=== PATIENT | female | born 1995 | race Caucasian/White ===

== ENCOUNTER 2021-12-14 08:05 | Inpatient (IN) ==
[2021-12-14] MEDS ORDERED: OXYTOCIN 30 UNITS/500 ML BAG IV PRN ×3 (08:18→22:02)
[2021-12-14 09:11] LABS: Hematocrit (blood only) 31.4 % (37-47); Hemoglobin 9.1 g/dL (12.0-16.0); Mean Corpuscular Hemoglobin 20.8 pg (25-34); Mean Corpuscular Volume 71.7 fL (80-100); Mean Platelet Volume 11.1 fL (7.4-10.4); Platelet Count 335 K/uL (130-400); RDW Coefficient of Variation 17.6 % (11.5-14.5); RDW Standard Deviation 46.4 fL (36.4-46.3); Red Blood Count 4.38 M/uL (4.2-5.4); White Blood Count 12.16 K/uL (4.8-10.8)
[2021-12-14] MEDS: LACTATED RINGER'S 1,000 ML IV PRN ×3 (09:31→19:02)
--- NOTE | 2021-12-14 09:48 | Medical Student H&P ---
Date of Service December 14, 2021 Assessment & Plan (1) Encounter for induction of labor: Plan: Gail is a 26 y/o presenting for induction of labor. Normal physical exam with stable vitals. -Initiation induction with pitocin. -Cont. to evaluate cervical changes. -Plan for Epidural. -Cont. heart monitoring (2) Supervision of normal intrauterine in multigravida: (3) Hx of preeclampsia, prior , currently : Plan: Admission and Anticipated Discharge Date Admission Date: December 14, 2021 History of Present Illness Chief Complaint: Induction of labor Primary Care Provider: Cristal Ramirez PA-C Gail is a 26 y/o with intrauterine at 39w 4d who presents to labor and delivery for induction of labor. She reports active movement and last contraction was felt last night. No leakage of fluid or vaginal bleeding reported. and Delivery Plans complex choroid plexus cyst in the right side of brain *found @ scan on 12/03/21 from outside facility *PP follow up Prior complicated by preeclampsia * rec baby asa * baseline labs and 24hr urine--wnl Allergies Allergy/AdvReac Type Severity Reaction Status Date / Time No Known Allergies Allergy Verified 12/13/21 11:27 Home Medications Medication Instructions Recorded Confirmed Type prenat.vits,onel,qrp-[id number] 1 tab PO DAILY 06/02/21 12/14/21 History aspirin 81 mg tablet,delayed 81 mg PO DAILY 07/05/21 12/14/21 History release (Adult Low Dose Aspirin) breast pump #1 ea 11/15/21 12/13/21 Rx Patient History Medical History No known health problems Surgical History (Updated 11/22/21 @ 10:02 by nAdria Delarosa RN) No history of previous surgery Family History Father Hypertension Grandfather (Maternal) Myocardial infarction Social History (Updated 11/22/21 @ 10:05 by Andria Delarosa, KIA) Smoking Status: Former smoker Smoking End Date: 2018; Second Hand Exposure: No; Hx Alcohol Use: No Hx Substance Use: No Preferred Language: Latvian Communication Ability: Effective Visual Impairment: No Limitations Hearing Ability: Normal Eyeletter Required: No Beliefs That Will Affect Care: None marital status: marital status details: [place] (25) [phone] Current Living Situation: Spouse Current Living Situation Comment: lives wtih spouse and daughter, 4 dogs. current occupational status: unemployed Other Information That Helps Us Care for You: No Feels Safe at Home: Yes Safety Concerns: Feels Safe At This Time Seatbelt Use: always Do you think of yourself as: straight/heterosexual Gender Identity: Female Assistive Devices: None OB History History : 2 Full term: 1 Premature: 0 Total Number of Induced Abortions: 0 Total Number of Spontaneous Abortions: 0 Ectopics: 0 Multiple births: 0 Number of Living Children: 1 Past Pregnancies Del. Date GA wks Lbr Lgth wt Sex Type del Anes Place Del Prov ? 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 Details: last pap 05/05/21 with [facility] records on file Review of Systems no dyspnea no chest pain no abdominal pain no dysuria Physical Exam Physical Exam: Pleasant female, in NAD, sitting up in bed Constitutional: WD/WN, vitals as above Respiratory: normal respiratory effort, lungs clear to auscultation Cardiovascular: RRR, no murmur, no edema Results & Data ([facility]) Vital Signs (Past 12 Hours) Vital Signs Temp Pulse Resp BP 12/14/21 09:35 89 114/66 12/14/21 08:20 36.6 C 103 H 20 125/81 12/14/21 08:08 36.6 C 103 H 20 125/81
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
[2021-12-14] MEDS ORDERED: SODIUM CHLORIDE 0.9% INJ 10 ML VIAL ONE (12:44)
[2021-12-14] MEDS ORDERED: ePHEDrine sulfate 50 MG/ML AMP ONE (12:44)
[2021-12-14] MEDS ORDERED: fentaNYL citrate 100 MCG/2 ML VIAL ONE (12:45)
[2021-12-14] MEDS ORDERED: BUPIVACAINE 0.25% 30 ML VIAL ONE ×2 (12:45→19:09)
[2021-12-14] MEDS: fentaNYL 2MCG/ML ROPIVACAINE 1.25MG/ML 100 ML BAG EPI ONE ×2 (13:19→13:23)
[2021-12-14] MEDS ORDERED: PROMETHAZINE HCL 6.25 MG in SODIUM CHLORIDE 0.9% 50 ML IV PRN (13:26)
[2021-12-14] MEDS ORDERED: fentaNYL 2MCG/ML ROPIVACAINE 1.25MG/ML 100 ML BAG EPI PRN (13:26)
[2021-12-14] MEDS ORDERED: NALOXONE HCL 0.4 MG/1 ML VIAL/CARP IV PRN (13:26)
[2021-12-14] MEDS ORDERED: NALOXONE HCL 1 MG in SODIUM CHLORIDE 0.9% 1000ML 1,000 ML IV PRN (13:26)
[2021-12-14] MEDS ORDERED: diphenhydrAMINE 50 MG/ML VIAL IV PRN (13:26)
[2021-12-14] MEDS ORDERED: ONDANSETRON INJ 2 MG/ML 2 ML VIAL IV PRN (13:26)
[2021-12-14] MEDS ORDERED: ePHEDrine sulfate 50 MG/ML AMP IV PRN (13:26)
[2021-12-14] MEDS ORDERED: NALBUPHINE HCL INJ 10 MG/ML AMP IV PRN (13:26)
--- NOTE | 2021-12-14 13:26 | Anesthesiology Consultation ---
Date of Service December 14, 2021 Assessment & Plan Chart Review Chart Review: Patient NOT seen in Pre Admission Testing and Acceptable Risk for Labor Epidural Consults Requested none ASA ASA2 Proposed Anesthesia Anesthesia Type: Labor Epidural Risk / Benefits Reviewed With: PT / POA / Parent / Guardian, Accepts Plan and Informed Consent Obtained History Height/Weight Height: 5 ft 5 in Weight: 84.368 kg Allergies Allergy/AdvReac Type Severity Reaction Status Date / Time No Known Allergies Allergy Verified 12/13/21 11:27 Medications Home Medications Medication Instructions Recorded Confirmed Last Taken prenat.vits,onel,mzo-pevm-huckc 1 tab PO DAILY 06/02/21 12/14/21 12/14/21 06:30 aspirin 81 mg tablet,delayed 81 mg PO DAILY 07/05/21 12/14/21 12/13/21 17:00 release (Adult Low Dose Aspirin) breast pump #1 ea 11/15/21 12/13/21 Unknown Active Medications Generic Name Dose Route Start Last Admin Trade Name Freq PRN Reason Stop Dose Admin Lactated Ringer's 1,000 mls @ 125 mls/hr 12/14/21 08:18 12/14/21 13:12 Lr IV 12/16/21 08:17 999 mls/hr .Q8H PRN Administration L&D Protocol Protocol Oxytocin 30 units in 500 mls @ 12 mls/hr 12/14/21 08:43 12/14/21 12:30 Pitocin IV 12/16/21 08:42 0.72 units/hr .Q24H PRN 12 mls/hr Labor Induction/Augmentation Titration Protocol 0.72 UNITS/HR Past Medical History Medical History No known health problems Exercise / Class Metabolic Activity II 4-5 Yardwork/Stairs/Walk up hill Past Family History Family History Father Hypertension Grandfather (Maternal) Myocardial infarction Past Surgical History Surgical History (Updated 11/22/21 @ 10:02 by Andria Delarosa RN) No history of previous surgery Past Anesthesia History No Hx of Anesthesia Complications and No Family Hx of Anesthesia Complications History of PONV No Hx of PONV and No Hx of Motion Sickness Social History Smoking Status: Former smoker tobacco type: cigarettes Smoking End Date: 2018 Hx Alcohol Use: No Hx Substance Use: No substance use type: does not use Physical Exam Vital Signs Last Vital Signs Temp 36.6 C 12/14/21 08:20 Pulse 84 12/14/21 13:23 Resp 20 12/14/21 08:20 BP 119/71 12/14/21 13:25 Pulse Ox 99 12/14/21 13:23 ENMT Mouth: no dentition abnormality Thyromental Distance: > or= 3.5 Finger Breadths Mallampati Class: II Neck normal visual inspection Respiratory normal respiratory effort Auscultation: lungs clear to auscultation bilaterally Cardiovascular Rate/Rhythm: regular rate and regular rhythm Psychiatric Orientation: alert Testing Laboratory Results 12/14/21 09:04 Blood Type AB Positive 12/14/21 09:04 Antibody Screen NEGATIVE 12/14/21 09:04
--- NOTE | 2021-12-14 14:07 | Labor Progress Brief Note ---
Date of Service December 14, 2021 Subjective Comfortable w/ epidural Assessment & Plan (1) Encounter for induction of labor: Plan: 26 y/o at 39 4/7 wga presents for elective IOL VSS Fetus cat 1 Labor - pit at 12, now s/p arom. Continue augmentation GBS neg epidural in place Admission and Anticipated Discharge Date Admission Date: December 14, 2021 Physical Exam Genitourinary: Manual OB Exam: + cervical dilation (4-5), + cervical effacement 70%, + station -2 and + amniotic fluid (AROM clear) OB Exam Monitor Tracing: + external FHT monitor used, + external uterine monitor used (q3-5) and + category I (130/mod/+accel/-decel) Results & Data ([facility]) Vital Signs (Past 12 Hours) Vital Signs Temp Pulse Resp BP Pulse Ox 12/14/21 13:58 76 100 12/14/21 13:57 76 133/85 12/14/21 13:53 119 H 100 12/14/21 13:48 108 H 100 12/14/21 13:43 103 H 99 12/14/21 13:41 90 125/71 12/14/21 13:38 82 99 12/14/21 13:36 83 136/77 12/14/21 13:33 76 119/74 99 12/14/21 13:28 104 H 99 12/14/21 13:25 81 119/71 12/14/21 13:23 84 125/72 99 12/14/21 13:21 86 120/74 12/14/21 13:19 86 132/86 12/14/21 13:18 87 99 12/14/21 13:17 80 131/82 12/14/21 13:13 84 99 12/14/21 13:08 87 100 12/14/21 13:03 83 100 12/14/21 12:58 88 123/73 100 12/14/21 12:30 93 H 132/85 12/14/21 11:29 88 124/76 12/14/21 10:37 84 117/77 12/14/21 09:35 89 114/66 12/14/21 08:20 97.9 F 103 H 20 125/81 12/14/21 08:08 97.9 F 103 H 20 125/81 Coding Level of Care Code None Diagnoses Encounter for induction of labor Z34.90
--- NOTE | 2021-12-14 16:14 | Labor Progress Brief Note ---
Date of Service December 14, 2021 Subjective Comfortable w/ epidural Assessment & Plan (1) Encounter for induction of labor: Plan: 26 y/o at 39 4/7 wga presents for elective IOL VSS Fetus cat 2 but good variability Labor - pit at 14 - Continue augmentation, try maternal repositioning GBS neg epidural in place Admission and Anticipated Discharge Date Admission Date: December 14, 2021 Physical Exam Genitourinary: Manual OB Exam: + cervical dilation 5 cm, + cervical effacement 70% and + station -2 OB Exam Monitor Tracing: + external FHT monitor used, + external uterine monitor used (q3-5) and + category I (130/mod/+accel/intermit variables ) Results & Data ([facility]) Vital Signs (Past 12 Hours) Vital Signs Temp Pulse Resp BP Pulse Ox 12/14/21 16:08 87 98 12/14/21 16:03 78 98 12/14/21 15:58 80 98 12/14/21 15:56 93 H 107/64 12/14/21 15:53 106 H 98 12/14/21 15:48 80 98 12/14/21 15:43 79 98 12/14/21 15:42 75 119/70 12/14/21 15:38 73 97 12/14/21 15:33 83 97 12/14/21 15:28 80 98 12/14/21 15:26 81 122/80 12/14/21 15:23 89 99 12/14/21 15:18 78 97 12/14/21 15:13 77 99 12/14/21 15:11 77 118/74 12/14/21 15:08 86 98 12/14/21 15:03 73 98 12/14/21 14:58 81 98 12/14/21 14:57 79 124/72 12/14/21 14:53 84 98 12/14/21 14:48 78 99 12/14/21 14:43 76 98 12/14/21 14:41 76 123/73 12/14/21 14:38 85 98 12/14/21 14:33 81 98 12/14/21 14:28 75 98 12/14/21 14:26 78 129/81 12/14/21 14:23 85 99 12/14/21 14:18 87 99 12/14/21 14:13 79 122/78 99 12/14/21 14:08 81 97 12/14/21 14:03 84 97 12/14/21 13:58 76 100 12/14/21 13:57 76 133/85 12/14/21 13:53 119 H 100 12/14/21 13:48 108 H 100 12/14/21 13:43 103 H 99 12/14/21 13:41 90 125/71 12/14/21 13:38 82 99 12/14/21 13:36 83 136/77 12/14/21 13:33 76 119/74 99 12/14/21 13:28 104 H 99 12/14/21 13:25 81 119/71 12/14/21 13:23 84 125/72 99 12/14/21 13:21 86 120/74 12/14/21 13:19 86 132/86 12/14/21 13:18 87 99 12/14/21 13:17 80 131/82 12/14/21 13:13 84 99 12/14/21 13:08 87 100 12/14/21 13:03 83 100 12/14/21 12:58 88 123/73 100 12/14/21 12:30 93 H 132/85 12/14/21 11:29 88 124/76 12/14/21 10:37 84 117/77 12/14/21 09:35 89 114/66 12/14/21 08:20 97.9 F 103 H 20 125/81 12/14/21 08:08 97.9 F 103 H 20 125/81 Coding Level of Care Code None Diagnoses Encounter for induction of labor Z34.90
--- NOTE | 2021-12-14 19:42 | Communication Note ---
Date of Service: December 14, 2021 called for increasing pain. patient is fully dilated, having intense pressure across the low abdomen. a few pushes were unsuccessful at moving the baby downward. excellent epidural level to temperature to at least T6 bilaterally. I did manage expectations that this overwhelming pressure is normal and expected in the 2nd stage. I have dosed her with 6cc of 0.25% marcaine to some improvement. Continue current pcea settings. Encourage use of bolus button PRN.
--- NOTE | 2021-12-14 20:46 | Delivery Summary ---
Vaginal Delivery Summary Date of Service December 14, 2021 Vaginal Delivery Summary and 2nd Degree LAC PREOPERATIVE DIAGNOSIS: 1. Single intrauterine at 39 4/7 wga 2. Elective IOL 3. History of pre-eclampsia 4. Right complex choroid plexus cyst POSTOPERATIVE DIAGNOSIS: 1. Single intrauterine at 39 4/7 wga 2. Elective IOL 3. History of pre-eclampsia 4. Right complex choroid plexus cyst 5. Delivered PROCEDURE: 1. Normal spontaneous vaginal delivery. SURGEON: Kim Velazquez MD ANESTHESIA: Epidural. ESTIMATED BLOOD LOSS: 300 mL FLUIDS: Continuous LR. URINE OUTPUT: None. COMPLICATIONS: None. CONDITION: Stable. INDICATIONS: 26 y/o at 39 4/7 wga presented for elective IOL. She was found to have a choroid plexus cyst at an outside sonography suite about 2 weeks ago and planned for f/u for this due to GA. Induction was started with oxytocin. She underwent artificial rupture of membranes and received an epidural for pain control. She progressed to complete and desired to push. FINDINGS: A viable female , weight pending with Apgars of 8 and 9 at 1 and 5 minutes respectively. SPECIMEN: Cord blood OPERATIVE REPORT: The patient progressed to 10 cm, 100% effaced and +2 station, pushed over intact perineum with anesthesia to deliver a viable female infant, weight and Apgars as above. Head of delivered in direct OP position. No nuchal cord was present. Body and shoulders were delivered without difficulty. was delivered to maternal abdomen and nursing staff. Delayed cord clamping was performed for 60 seconds. Cord was clamped and cut. Cord blood was obtained. Placenta delivered spontaneously intact with 3-vessel cord. IV oxytocin and fundal massage were given for excellent hemostasis. Vagina, cervix, perineum, and placenta were inspected. A second degree laceration was noted and repaired using 3-0 Vicryl, there was excellent hemostasis. Sponge and needle counts correct x2. No sponges were left behind. Mother and stable in immediate period. [facility] Vaginal Delivery Charge Vaginal Delivery Codes: 53650 global code for the antepartum, delivery, and post- Delivery Type Details: and 2nd Degree LAC
--- NOTE | 2021-12-14 20:55 | Anesthesia Procedure Note ---
Date of Service December 14, 2021 Anesthesia Post Epidural Note Vital Signs Vital Signs: Temp Pulse Resp BP Pulse Ox 36.9 C 98 H 20 121/63 99 12/14/21 17:03 12/14/21 20:52 12/14/21 18:03 12/14/21 20:52 12/14/21 20:18 Pain Intensity Bilateral Abdomen: Pain Intensity: 0 Notes Mental Status: alert / awake / arousable Nausea / Vomiting: adequately controlled Pain: adequately controlled Airway Patency, RR, SpO2: stable & adequate BP & HR: stable & adequate Hydration State: stable & adequate Neuraxial Anesthesia: was administered and sensory block is resolving Anesthetic Complications: no major complications apparent and Pt Satisfied with anesthetic care Epidural: Removed without complications and With tip intact
[2021-12-14] MEDS ORDERED: HYDROCORTISONE ACETATE 25 MG SUPP PR PRN (22:02)
[2021-12-14] MEDS ORDERED: bisacodyL 10 MG SUPP PR PRN (22:02)
[2021-12-14] MEDS ORDERED: DIPHTHERIA/TETANUS/PERTUSSIS 0.5 ML SYR/VIAL IM ONE (22:02)
[2021-12-14] MEDS ORDERED: BENZOCAINE 20% AER SPR 82.5 GM CAN EXT PRN (22:02)
[2021-12-14] MEDS: ACETAMINOPHEN 325 MG TAB PO PRN (22:12)
[2021-12-15 05:56] LABS: Hemoglobin 8.4 g/dL (12.0-16.0); Mean Corpuscular Hemoglobin 20.6 pg (25-34); Mean Corpuscular Volume 71.3 fL (80-100); Mean Platelet Volume 10.6 fL (7.4-10.4); Platelet Count 286 K/uL (130-400); RDW Coefficient of Variation 17.4 % (11.5-14.5); RDW Standard Deviation 45.1 fL (36.4-46.3); Red Blood Count 4.07 M/uL (4.2-5.4); White Blood Count 19.31 K/uL (4.8-10.8)
[2021-12-15] MEDS: ACETAMINOPHEN 325 MG TAB PO PRN (06:13)
--- NOTE | 2021-12-15 07:07 | Hospitalist Progress Note ---
Date of Service December 15, 2021 Assessment & Plan (1) Encounter for care and examination after delivery: Plan: 26yo PPD 1 s/p at 39 weeks 4 days complicated 2nd degree laceration. -Continue routine care -Vitals reviewed- HDS, afebrile -Rubella immune, GBS neg -Encourage ambulation, regular diet -Pain control with ibuprofen, acetaminophen PRN -Encourage -h/o anemia during not on iron pills last 2 months; Hgb 8.4, stable, supplement iron -f/u in 6 weeks with OB after discharge (2) Supervision of normal intrauterine in multigravida: (3) Hx of preeclampsia, prior , currently : (4) Hypertension affecting , delivered, current hospitalization: Admission and Anticipated Discharge Date Admission Date: December 14, 2021 Supervising Physician Co-Signing Physician Notes Resident Physician Supervision Note: I interviewed and examined the patient. Discussed with Dr. Russo and agree with findings and plan as documented in the note. Any exceptions or clarifications are listed here: PP1 s/p for eIOL. VSS, exam benign and wnl. *pt did NOT have salcedo, she has been voiding appropriately and was not on mag*. Iron ordered for anemia, continue routine pp care. Plan for d/c tomorrow as pt lives far away Documented By: Kim Velazquez MD Subjective Ambulation: yes Voiding: not yet, salcedo removed 2 hours ago s/p mag drip Passing Gas: no BM: no Diet Tolerance: regular w/o N/V Lochia: small Feeding Type: breast and bottle Current Pain Level(1-10): 4 Review of Systems Review of Systems: Denies fevers/chills. Denies dyspnea, cough. Denies chest pain. Denies breast pain or discharge. Denies dysuria. Mild headache early this morning. +low back pain. Physical Exam Physical Exam: General: Alert, oriented, no acute distress Cardiac: Regular rate and rhythm. No murmurs appreciated. Respiratory: Clear to auscultation b/l with good air flow entry, symmetric chest rise and fall. No wheezes or crackles. No increased work of breathing or accessory muscle use. Abdomen: Soft, appropriate mild generalized tenderness s/p delivery, nondistended. Fundus firm and palpable at 1 cm above umbilicus. No guarding or rebound. Skin: No rashes or lesions Extremities: Warm, dry, well-perfused. No lower extremity edema, erythema or swelling. No calf tenderness. Results & Data Results & Data ([facility]) Vital Signs (Past 12 Hours) Vital Signs Temp Pulse Pulse Resp BP BP Pulse Ox 12/15/21 03:00 36.8 C 77 20 100/62 96 12/14/21 23:10 36.8 C 83 20 116/70 97 12/14/21 22:00 36.9 C 74 16 97 12/14/21 21:51 37.3 C 24 12/14/21 21:50 93 H 123/66 12/14/21 21:37 86 126/58 L 12/14/21 21:22 96 H 127/81 12/14/21 21:07 88 122/74 12/14/21 20:52 98 H 121/63 12/14/21 20:37 103 H 138/70 12/14/21 20:22 109 H 139/67 12/14/21 20:18 103 H 99 12/14/21 20:13 107 H 100 12/14/21 20:10 100 H 90 12/14/21 20:08 105 H 135/70 100 12/14/21 20:03 103 H 98 12/14/21 19:58 124 H 98 12/14/21 19:54 99 H 88 L 12/14/21 19:53 101 H 133/81 100 12/14/21 19:48 96 H 100 12/14/21 19:43 121 H 100 12/14/21 19:38 104 H 100 12/14/21 19:37 110 H 130/86 92 12/14/21 19:33 137 H 100 12/14/21 19:31 93 H 92 12/14/21 19:28 107 H 100 12/14/21 19:24 105 H 134/84 12/14/21 19:23 105 H 100 12/14/21 19:21 98 H 133/82 12/14/21 19:18 95 H 132/78 95 12/14/21 19:15 94 H 132/79 12/14/21 19:13 108 H 100 12/14/21 19:12 93 H 130/77 12/14/21 19:08 89 100 12/14/21 19:03 102 H 83 L 12/14/21 18:58 89 100 12/14/21 18:57 100 H 127/78 Resident Activity Tracking Resident Involvement: Resident Care Provided Care Provided: OB Delivery
[2021-12-15] MEDS: DOCUSATE SODIUM 100 MG CAP PO SCH ×2 (07:52→19:17)
[2021-12-15] MEDS: PRENATAL VITAMIN 1 TAB PO SCH (07:52)
[2021-12-15] MEDS: IBUPROFEN 600 MG TAB PO PRN ×3 (07:52→19:17)
[2021-12-15] MEDS: FERROUS SULFATE 325 MG TAB PO SCH (07:52)
[2021-12-15] MEDS ORDERED: bisacodyL 5 MG TABEC PO SCH (20:00)
[2021-12-16] MEDS: IBUPROFEN 600 MG TAB PO PRN (06:15)
--- NOTE | 2021-12-16 07:16 | Hospitalist Progress Note ---
Date of Service December 16, 2021 Assessment & Plan (1) Encounter for care and examination after delivery: Plan: 26yo PPD 1 s/p at 39 weeks 4 days complicated 2nd degree laceration. -Continue routine care -Vitals reviewed- HDS, afebrile -Rubella immune, GBS neg -Encourage ambulation, regular diet -Pain control with ibuprofen, acetaminophen PRN -Encourage -h/o anemia during , stopped iron pills last 2 months of due to GI symptoms; Hgb 8.4 (2/), stable, cont. iron supplementation for next 6 weeks; consider niferex if GI symptoms on current iron pills -f/u in 6 weeks with OB after discharge; recheck Hgb at this time (2) Supervision of normal intrauterine in multigravida: Admission and Anticipated Discharge Date Admission Date: December 14, 2021 Supervising Physician Co-Signing Physician Notes Resident Physician Supervision Note: I was present with Dr. Michael Russo during the history and exam. I discussed the case with the resident and agree with the findings and plan as documented in the note. Any exceptions or clarifications are listed here: [None] Documented By: Rossy Haque MD, FACOG Subjective Ambulation: yes Voiding: yes Passing Gas: yes BM: yes Diet Tolerance: regular w/o N/V Lochia: small Feeding Type: breast and bottle Current Pain Level(1-10): 4 Review of Systems Review of Systems: Denies fevers/chills. Denies dyspnea, cough. Denies chest pain. Denies breast pain or discharge. Denies dysuria. Denies headache. Physical Exam Physical Exam: General: Alert, oriented, no acute distress Cardiac: Regular rate and rhythm. No murmurs appreciated. Respiratory: Clear to auscultation b/l with good air flow entry, symmetric chest rise and fall. No wheezes or crackles. No increased work of breathing or accessory muscle use. Abdomen: Soft, appropriate mild generalized tenderness s/p delivery, nondistended. Fundus firm and palpable 1cm below umbilicus. No guarding or rebound. Skin: No rashes or lesions Extremities: Warm, dry, well-perfused. No lower extremity edema, erythema or swelling. No calf tenderness. Results & Data Results & Data ([facility]) Vital Signs (Past 12 Hours) Vital Signs Temp Pulse Resp BP Pulse Ox 12/15/21 23:28 36.4 C L 67 16 106/71 97 Resident Activity Tracking Resident Involvement: Resident Care Provided Care Provided: OB Delivery
[2021-12-16] MEDS: PRENATAL VITAMIN 1 TAB PO SCH (08:46)
[2021-12-16] MEDS: DOCUSATE SODIUM 100 MG CAP PO SCH (08:46)
[2021-12-16] MEDS: FERROUS SULFATE 325 MG TAB PO SCH (08:46)
== END 2021-12-16 12:09 | disposition home or self-care (01) | DRG 807 ==
LOC: 4S1 08:05 → 4S2 22:05
DX: Z37.0 Single live birth; Z87.891 Personal history of nicotine dependence; Z87.59 Personal history of other complications of pregnancy, childbirth and the puerperium; O70.1 Second degree perineal laceration during delivery; O35.0XX0 Maternal care for (suspected) central nervous system malformation in fetus, not applicable or unspecified; Z3A.39 39 weeks gestation of pregnancy

== ENCOUNTER 2021-12-19 10:38 | Inpatient (IN) ==
[2021-12-19] MEDS ORDERED: SODIUM CHLORIDE 0.9% 1000ML 1,000 ML IV STA (11:07)
[2021-12-19] MEDS ORDERED: MoRPHine SULFATE 4 MG/ML 1 ML CARP\\VIAL IV STA (11:07)
[2021-12-19] MEDS ORDERED: ONDANSETRON INJ 2 MG/ML 2 ML VIAL IV STA (11:07)
[2021-12-19 11:17] LABS: Basophils # (auto) 0.02 K/uL (0-0.2); Basophils % (auto) 0.1 %; Eosinophils # (auto) 0.12 K/uL (0-0.5); Eosinophils % (auto) 0.9 %; Hematocrit (blood only) 34.3 % (37-47); Immature Granulocytes % (auto) 0.7 %; Lymphocytes # (auto) 2.58 K/uL (1.2-3.4); Lymphocytes % (auto) 18.4 %; Mean Corpuscular Hemoglobin 21.3 pg (25-34); Mean Corpuscular Hgb Conc 29.2 g/dL (32-36); Mean Platelet Volume 10.1 fL (7.4-10.4); Monocytes # (auto) 1.06 K/uL (0.11-0.59); Monocytes % (auto) 7.5 %; Neutrophils # (auto) 10.16 K/uL (1.4-6.5); Neutrophils % (auto) 72.4 %; Platelet Count 364 K/uL (130-400); RDW Coefficient of Variation 18.4 % (11.5-14.5); White Blood Count 14.04 K/uL (4.8-10.8)
--- NOTE | 2021-12-19 11:17 | Emergency Department Note ---
Impression & Plan Adrenal hemorrhage, DVT (deep venous thrombosis), Acute flank pain ED Provider Note NAME: JOSÉ GALE AGE: 26 SEX: F : 1995 ARRIVES VIA: Walk-In INFORMANT: Patient, ED PROVIDER(S): Danilo Moser DO CHIEF COMPLAINT: Flank pain HPI: The patient is a 26-year-old female who presented to the emergency department for evaluation of flank pain. The patient has a history of kidney stones but states that this feels different than her usual kidney stone pain. The patient came via triage. She is 1 week normal spontaneous vaginal delivery. She states that this went well. Her lochia has been slowing down. She denies having any dysuria or frequency. She states the pain is constant and very sharp. She denies having any chest pain or difficulty breathing. She is noticed no fevers. She is been taking [id number] medication with only minimal relief. She called her LEASING PROFESSIONAL physician and was referred to the emergency department for further evaluation. The patient has had nausea. She denies have any lower extremity swelling or pain. She has had no vaginal discharge. ROS: See above HPI for pertinent positives & negatives. A total of 10 systems reviewed and were otherwise negative. PAST MEDICAL HISTORY: See Below PAST SURGICAL HISTORY: See Below FAMILY HISTORY: See Below SOCIAL HISTORY: See Below HOME MEDICATIONS: See Below ALLERGIES: See Below VITALS: See Below PHYSICAL EXAMINATION: GENERAL: The patient is awake and alert. The patient is very anxious appearing and appears to be uncomfortable EYES: The conjunctivae are clear. The pupils are round and reactive. EARS, NOSE, MOUTH AND THROAT: The nose is without any evidence of any deformity. NECK: The neck is nontender and supple. RESPIRATORY: Normal respiratory effort is noted there is no evidence of wheezing rhonchi or rales CARDIOVASCULAR: Regular rate and rhythm noted there no murmurs rubs or gallops normal S1 normal S2. GASTROINTESTINAL: The abdomen is soft and mildly distended. There is no specific tenderness guarding rigidity. BACK: There was significant left CVA tenderness to percussion. There is no midline tenderness. Range of motion appears intact MUSCULOSKELETAL/EXTREMITIES: There is no evidence of gross deformity full range of motion is noted in the hips and shoulders. SKIN: There is no obvious evidence of any rash. There are no petechiae, pallor or cyanosis noted. NEUROLOGIC: Patient is awake alert and oriented x3 strength is symmetric patellar reflexes are 2+ bilaterally MEDICAL DECISION MAKING: The patient is a 26-year-old female who presented to emergency department for an evaluation of flank pain. The patient is 5 days status post vaginal delivery. The patient presented for acute left flank pain. She has a history of kidney stones. Initially a work-up was obtained to ensure there was no complications because of her recent vaginal delivery as well as to evaluate for kidney stone. The patient was not found to have any abnormality on initial work-up. For this reason CT of the abdomen and pelvis was obtained. The report did appear to be consistent with adrenal hemorrhage with a possible left adrenal vein thrombosis. They recommended a repeat scan with contrast which was obtained. The scan showed roughly the same appearance. I discussed patient's laboratory and radiographic studies with her. I discussed her case with the covering LE[employer] PROFESSIONAL physician as well as hematology. [facility] also [facility] have agreed to evaluate the patient in the emergency department for further management and disposition. The patient was treated with IV fluids and IV pain medication. Triage Nursing notes reviewed. Prior medical records reviewed Vital Signs: reviewed and remarkable for no significant abnormalities Differential diagnosis: Renal colic, UTI, appendicitis, diverticulitis, mesenteric ischemia, aortic pathology, infections, inflammatory bowel disease, PUD, biliary pathology, as well as other pathologies. ER treatment provided: See below Diagnostics interpreted by me: ECG: none Cardiac Monitoring: An order was placed for continuous cardiac monitoring. The monitor shows a rate of 94 bpm with sinus rhythm. Laboratory studies: As stated above and show below. Imaging studies: See below Consultation(s): I discussed this case with Dr Parikh. I discussed this case with Dr Licona. I discusses this case with Dr Au. I discussed this case with Dr. Bauer who [facility] They have agreed to evaluate the patient in the emergency department for further management and disposition. Past Med/Surg History Medical History No known health problems Surgical History No history of previous surgery Family History Father Hypertension Grandfather (Maternal) Myocardial infarction Social History Smoking Status: Never smoker Second Hand Exposure: No; Hx Alcohol Use: No Hx Substance Use: No Preferred Language: Czech Communication Ability: Effective Visual Impairment: No Limitations Hearing Ability: Normal Auto Phone Installer Required: No Beliefs That Will Affect Care: None marital status: marital status details: Kent (25) [phone] Current Living Situation: Spouse Current Living Situation Comment: lives wtih spouse and daughter, 4 dogs. current occupational status: unemployed Feels Safe at Home: Yes Seatbelt Use: always Do you think of yourself as: straight/heterosexual Gender Identity: Female Assistive Devices: None Allergies Allergies Allergy/AdvReac Type Severity Reaction Status Date / Time No Known Allergies Allergy Verified 12/19/21 11:20 Home Meds Home Medications Medication Instructions Recorded Confirmed prenat.vits,onel,sra-nyjm-[id number] 1 tab PO DAILY 06/02/21 12/19/21 Previous Rx's Medication Instructions Recorded breast pump #1 ea 11/15/21 ferrous sulfate 325 mg (65 mg 325 mg PO DAILY@08 #60 tab 12/16/21 iron) tablet,delayed release Results & Data (ED) Vital Signs Vital Signs - 24 hr 12/19/21 10:45 12/19/21 11:29 12/19/21 15:29 Temperature 36.3 C L Temperature Source Temporal Artery Scan Pulse Rate 97 H 85 Pulse Rate [Apical] 85 102 H Pulse Rhythm Regular Pulse Rhythm [Apical] Regular Regular Pulse Strength [Apical] Respiratory Rate 18 16 16 Respiratory Effort / Characteristics Non-Labored Respiratory Depth Normal Normal Respiratory Pattern Blood Pressure 127/88 Blood Pressure [Left Arm] Blood Pressure Mean 101 Blood Pressure Mean [Left Arm] Blood Pressure Position [Left Arm] Pulse Oximetry 97 98 96 Oxygen Delivery Method Room Air Room Air Sepsis Recent Fever Within 48 Hours No Sepsis New/Unexplained Change in Mental Status No Sepsis Action Taken by Nursing No Action Required 12/19/21 16:17 Temperature Temperature Source Pulse Rate Pulse Rate [Apical] 94 H Pulse Rhythm Pulse Rhythm [Apical] Regular Pulse Strength [Apical] Normal Respiratory Rate 18 Respiratory Effort / Characteristics Non-Labored Spontaneous Respiratory Depth Normal Respiratory Pattern Regular Blood Pressure Blood Pressure [Left Arm] 136/92 Blood Pressure Mean Blood Pressure Mean [Left Arm] 106 Blood Pressure Position [Left Arm] Semi-fowlers Pulse Oximetry 96 Oxygen Delivery Method Room Air Sepsis Recent Fever Within 48 Hours Sepsis New/Unexplained Change in Mental Status Sepsis Action Taken by [facility] Medications Current Medication List: was personally reviewed by me Laboratory Data Attestation: I reviewed the patient's lab results. Result diagrams: 12/19/21 15:44 12/19/21 10:59 Lab Results 12/19/21 12/19/21 12/19/21 Range/Units 10:59 10:59 10:59 WBC 14.04 H (4.8-10.8) K/uL RBC 4.70 (4.2-5.4) M/uL Hgb 10.0 L (12.0-16.0) g/dL Hct 34.3 L (37-47) % MCV 73.0 L (80-100) fL MCH 21.3 L (25-34) pg MCHC 29.2 L (32-36) g/dL RDW Std Deviation 47.0 H (36.4-46.3) fL RDW Coeff of Iram 18.4 H (11.5-14.5) % Plt Count 364 (130-400) K/uL MPV 10.1 (7.4-10.4) fL Immature Gran % (Auto) 0.7 % Neut % (Auto) 72.4 % Lymph % (Auto) 18.4 % [place] % (Auto) 7.5 % Eos % (Auto) 0.9 % Baso % (Auto) 0.1 % Neut # (Auto) 10.16 H (1.4-6.5) K/uL Lymph # (Auto) 2.58 (1.2-3.4) K/uL [place] # (Auto) 1.06 H (0.11-0.59) K/uL Eos # (Auto) 0.12 (0-0.5) K/uL Baso # (Auto) 0.02 (0-0.2) K/uL Immature Gran # (Auto) 0.10 H (0.00-0.02) K/uL Microcytosis Present PT (9.0-12.0) Seconds INR (0.9-1.1) APTT (21.0-31.0) Seconds PTT Ratio Sodium 137 (136-145) mmol/L Potassium 3.6 (3.5-5.1) mmol/L Chloride 103 (98-107) mmol/L Carbon Dioxide 26 (21-32) mmol/L Anion Gap 8 (3-11) BUN 12 (6-23) mg/dl Creatinine 0.46 L (0.6-1.2) mg/dl Est Cr Clr Drug Dosing 191.6 ml/min Est GFR ( Amer) > 150.0 ml/min Est GFR (Non-Af Amer) 137.3 ml/min BUN/Creatinine Ratio 26.1 H (10-20) Glucose 83 (70-99(Fasting)) mg/dl Calcium 8.7 (8.5-10.1) mg/dl Total Bilirubin 0.2 (0.2-1.0) mg/dl AST 29 (13-39) U/L ALT 42 (7-52) U/L Alkaline Phosphatase 155 H (34-104) U/L Total Protein 7.1 (6.0-8.3) gm/dl Albumin 3.6 (3.4-5.0) gm/dl Globulin 3.5 (2.5-4.0) gm/dl Albumin/Globulin Ratio 1.0 (0.9-2) Lipase 25 (11-82) U/L HCG, Quant 271 mIU/ml Urine Color Urine Appearance (Clear) Urine pH (4.5-7.5) Ur Specific [place] (1.000-1.030) Urine Protein (Negative) Urine Glucose (UA) (Negative) Urine Ketones (Negative) Urine Blood (Negative) Urine Nitrite (Negative) Urine Bilirubin (Negative) Urine Urobilinogen (Negative) Ur Leukocyte Esterase (Negative) Urine WBC (Auto) (0-5) /hpf Urine RBC (Auto) (0-4) /hpf U Hyaline Cast (Auto) (0-5) /lpf U Epithel Cells (Auto) (0-5) /lpf Urine Bacteria (Auto) (Negative) SARS-CoV-2, RNA, NAAT (NEGATIVE) 12/19/21 12/19/21 12/19/21 Range/Units 10:59 15:28 15:44 WBC 14.17 H (4.8-10.8) K/uL RBC 4.38 (4.2-5.4) M/uL Hgb 9.1 L (12.0-16.0) g/dL Hct 32.0 L (37-47) % MCV 73.1 L (80-100) fL MCH 20.8 L (25-34) pg MCHC 28.4 L (32-36) g/dL RDW Std Deviation 47.0 H (36.4-46.3) fL RDW Coeff of Iram 18.2 H (11.5-14.5) % Plt Count 345 (130-400) K/uL MPV 10.1 (7.4-10.4) fL Immature Gran % (Auto) 0.5 % Neut % (Auto) 76.6 % Lymph % (Auto) 15.7 % [place] % (Auto) 6.7 % Eos % (Auto) 0.4 % Baso % (Auto) 0.1 % Neut # (Auto) 10.85 H (1.4-6.5) K/uL Lymph # (Auto) 2.22 (1.2-3.4) K/uL [place] # (Auto) 0.95 H (0.11-0.59) K/uL Eos # (Auto) 0.06 (0-0.5) K/uL Baso # (Auto) 0.02 (0-0.2) K/uL Immature Gran # (Auto) 0.07 H (0.00-0.02) K/uL Microcytosis Present PT 9.7 (9.0-12.0) Seconds INR 1.0 (0.9-1.1) APTT 25.1 (21.0-31.0) Seconds PTT Ratio 1.0 Sodium (136-145) mmol/L Potassium (3.5-5.1) mmol/L Chloride (98-107) mmol/L Carbon Dioxide (21-32) mmol/L Anion Gap (3-11) BUN (6-23) mg/dl Creatinine (0.6-1.2) mg/dl Est Cr Clr Drug Dosing ml/min Est GFR ( Amer) ml/min Est GFR (Non-Af Amer) ml/min BUN/Creatinine Ratio (10-20) Glucose (70-99(Fasting)) mg/dl Calcium (8.5-10.1) mg/dl Total Bilirubin (0.2-1.0) mg/dl AST (13-39) U/L ALT (7-52) U/L Alkaline Phosphatase (34-104) U/L Total Protein (6.0-8.3) gm/dl Albumin (3.4-5.0) gm/dl Globulin (2.5-4.0) gm/dl Albumin/Globulin Ratio (0.9-2) Lipase (11-82) U/L HCG, Quant mIU/ml Urine Color Urine Appearance (Clear) Urine pH (4.5-7.5) Ur Specific [place] (1.000-1.030) Urine Protein (Negative) Urine Glucose (UA) (Negative) Urine Ketones (Negative) Urine Blood (Negative) Urine Nitrite (Negative) Urine Bilirubin (Negative) Urine Urobilinogen (Negative) Ur Leukocyte Esterase (Negative) Urine WBC (Auto) (0-5) /hpf Urine RBC (Auto) (0-4) /hpf U Hyaline Cast (Auto) (0-5) /lpf U Epithel Cells (Auto) (0-5) /lpf Urine Bacteria (Auto) (Negative) SARS-CoV-2, RNA, NAAT NEGATIVE (NEGATIVE) 12/19/21 Range/Units Unknown WBC (4.8-10.8) K/uL RBC (4.2-5.4) M/uL Hgb (12.0-16.0) g/dL Hct (37-47) % MCV (80-100) fL MCH (25-34) pg MCHC (32-36) g/dL RDW Std Deviation (36.4-46.3) fL RDW Coeff of Iram (11.5-14.5) % Plt Count (130-400) K/uL MPV (7.4-10.4) fL Immature Gran % (Auto) % Neut % (Auto) % Lymph % (Auto) % [place] % (Auto) % Eos % (Auto) % Baso % (Auto) % Neut # (Auto) (1.4-6.5) K/uL Lymph # (Auto) (1.2-3.4) K/uL [place] # (Auto) (0.11-0.59) K/uL Eos # (Auto) (0-0.5) K/uL Baso # (Auto) (0-0.2) K/uL Immature Gran # (Auto) (0.00-0.02) K/uL Microcytosis PT (9.0-12.0) Seconds INR (0.9-1.1) APTT (21.0-31.0) Seconds PTT Ratio Sodium (136-145) mmol/L Potassium (3.5-5.1) mmol/L Chloride (98-107) mmol/L Carbon Dioxide (21-32) mmol/L Anion Gap (3-11) BUN (6-23) mg/dl Creatinine (0.6-1.2) mg/dl Est Cr Clr Drug Dosing ml/min Est GFR ( Amer) ml/min Est GFR (Non-Af Amer) ml/min BUN/Creatinine Ratio (10-20) Glucose (70-99(Fasting)) mg/dl Calcium (8.5-10.1) mg/dl Total Bilirubin (0.2-1.0) mg/dl AST (13-39) U/L ALT (7-52) U/L Alkaline Phosphatase (34-104) U/L Total Protein (6.0-8.3) gm/dl Albumin (3.4-5.0) gm/dl Globulin (2.5-4.0) gm/dl Albumin/Globulin Ratio (0.9-2) Lipase (11-82) U/L HCG, Quant mIU/ml Urine Color Yellow Urine Appearance Clear (Clear) Urine pH 6.0 (4.5-7.5) Ur Specific [place] 1.026 (1.000-1.030) Urine Protein Trace H (Negative) Urine Glucose (UA) Negative (Negative) Urine Ketones Negative (Negative) Urine Blood 1+ H (Negative) Urine Nitrite Negative (Negative) Urine Bilirubin Negative (Negative) Urine Urobilinogen Negative (Negative) Ur Leukocyte Esterase Negative (Negative) Urine WBC (Auto) 1-5 (0-5) /hpf Urine RBC (Auto) 0-4 (0-4) /hpf U Hyaline Cast (Auto) 1-5 (0-5) /lpf U Epithel Cells (Auto) >30 H (0-5) /lpf Urine Bacteria (Auto) Negative (Negative) SARS-CoV-2, RNA, NAAT (NEGATIVE) Administered Medications Morphine Sulfate (Morphine Sulfate 4 Mg/Ml 1 Ml Carp\Vial) 4 mg IV Q30M PRN PRN Reason: Pain Stop: 01/02/22 11:06 Last Admin: 12/19/21 17:56 Dose: 4 mg Documented by: [id number] Admin: 12/19/21 16:02 Dose: 4 mg Documented by: [id number] Admin: 12/19/21 12:36 Dose: 4 mg Documented by: [id number] Discontinued Medications Sodium Chloride (Nss 1000ml) 1,000 mls @ 999 mls/hr IV .Q1H1M STA Stop: 12/19/21 12:07 Last Infusion: 12/19/21 12:31 Dose: 0 mls/hr Documented by: [id number] Admin: 12/19/21 11:28 Dose: 999 mls/hr Documented by: [id number] Ioversol (Optiray 320 100ml) 94 ml IV ONCE ONE Stop: 12/19/21 16:09 Last Admin: 12/19/21 16:10 Dose: 94 ml Documented by: [id number] Morphine Sulfate (Morphine Sulfate 4 Mg/Ml 1 Ml Carp\Vial) 4 mg IV NOW STA Stop: 12/19/21 11:08 Last Admin: 12/19/21 11:28 Dose: 4 mg Documented by: [id number] Ondansetron HCl (Ondansetron Inj 2 Mg/Ml 2 Ml Vial) 4 mg IV NOW STA Stop: 12/19/21 11:08 Last Admin: 12/19/21 11:28 Dose: 4 mg Documented by: [id number] Imaging Data Radiologist's Impression: KUB X-Ray 12/19/21 11:07 KUB CLINICAL HISTORY: Left-sided abdominal pain. Recent delivery. FINDINGS: 2 AP supine abdominal radiographs are obtained. No prior studies are available for comparison at the time of dictation. There is a nonobstructed abdominal bowel gas pattern noting moderate colonic fecal retention. No evidence of intraperitoneal free air is seen on these supine images. There are no abnorm al abdominal calcifications. Soft tissue density in the pelvis likely corresponds to the post gravid uterus. The bony structures appear intact. Diastases of the pubic symphysis may be related to recent delivery. IMPRESSION: 1. Moderate constipation. 2. Diastases of the pubic symphysis may be related to recent delivery. 3. Soft tissue density in the pelvis likely corresponds to the post gravid uterus. Electronically signed by: Chilo Monet M.D. 12/19/2021 1:16 PM Pelvis Ultrasound 12/19/21 11:07 ULTRASOUND OF THE PELVIS CLINICAL HISTORY: pelvic pain. COMPARISON STUDY: No priors. TECHNIQUE: Real-time, grayscale, and color flow sonography of the pelvis is performed transabdominally . Images are reviewed in the transverse and longitudinal planes. FINDINGS: Uterus: The post gravid uterus is enlarged and heterogeneous, measuring 16.7 x 7.7 x 11.0 cm. Uterus appears hyperemic on color imaging. Endometrium: The endometrium is mildly thickened and heterogeneous, measuring up to 1.5 cm. No abnormal flow is shown on color imaging. Ovaries: The ovaries are normal in size and morphology. The right ovary measures 2.7 x 1.4 x 1.5 cm and the left ovary measures 3.0 x 2.0 x 1.5 cm. Normal Doppler waveforms are shown within both ovaries. Pelvis: There is no free fluid in the cul-de-sac. No concerning adnexal lesion is seen. IMPRESSION: 1. The post gravid uterus is enlarged and heterogeneous. 2. The endometrium is mildly thickened and heterogeneous measuring up to 1.5 cm. No abnormal flow is identified to suggest retained products of conception. 3. Unremarkable transabdominal sonographic evaluation of the ovaries. ACT 112: Negative or not required by law. Electronically signed by: Chilo Monet M.D. 12/19/2021 12:13 PM Renal Ultrasound 12/19/21 11:07 RENAL ULTRASOUND CLINICAL HISTORY: Left flank pain. COMPARISON STUDY: None. TECHNIQUE: Sonography of the kidneys and the urinary bladder was performed. FINDINGS: Right kidney measures 12.6 cm in maximal dimension and the left measures 13.7 cm. There is no hydronephrosis. Renal echogenicity, size and cortical thickness are normal. No renal calculus or mass is identified. Bladder is suboptimally assessed given underdistention. Ureteral jets were not visualized IMPRESSION: Unremarkable sonographic appearance of the kidneys. No hydronephrosis. ACT 112: Negative or not required by law. Electronically signed by: Yung Hogan M.D. 12/19/2021 12:23 PM Abdomen/Pelvis CT 12/19/21 14:16 CT SCAN OF THE ABDOMEN AND PELVIS WITHOUT IV CONTRAST CLINICAL HISTORY: Left flank pain. COMPARISON STUDY: Abdominal radiograph dated 12/19/2021. TECHNIQUE: CT scan of the abdomen and pelvis is performed from the lung bases to the proximal femora. Images are reviewed in the axial, sagittal, and coronal planes. IV contrast was not administered for this examination. A dose lowering technique was utilized adhering to the principles of ALARA. CT DOSE: 475.63 mGy.cm FINDINGS: Lung bases: The heart is normal in size and without pericardial effusion. There are trace pleural effusions with dependent atelectasis. Liver: The unenhanced liver is normal in size, contour, and attenuation. There is no intrahepatic biliary ductal dilatation. Gallbladder: Unremarkable. Spleen: Normal in size and attenuation. Pancreas: Unremarkable. Adrenal glands: There is hemorrhage of the left adrenal gland with surrounding inflammation and fluid. The left adrenal vein appears distended and hyperdense as seen on axial image #149. General vein thrombosis is not excluded. The right adrenal gland is normal in appearance.. Kidneys: The unenhanced kidneys are normal in size and without hydronephrosis. There are no renal calculi identified. There is no evidence of contour deforming renal mass lesion. Infiltration around the upper pole of left kidney is likely related to adrenal hemorrhage. Abdominal vasculature: The abdominal aorta is normal in course and caliber. Bowel: There is mild to moderate colonic fecal retention. No bowel obstruction is identified. The appendix is well-visualized and normal. Peritoneum: There is no intraperitoneal free air or abdominal ascites. There is a fat-containing umbilical hernia. Lymphadenopathy: None. Pelvic viscera: The bladder is normal as visualized. The post gravid uterus is enlarged and heterogeneous. Hyperdense material within the endometrial canal may represent blood products. No adnexal lesion is seen. Trace free fluid is noted in the cul-de-sac. Skeletal structures: No lytic or blastic lesions are seen. Diastases of the pubic symphysis is likely related to recent delivery. IMPRESSION: 1. There is left adrenal hemorrhage with surrounding inflammation and fluid. 2. The left adrenal vein appears distended and hyperdense, and thrombosis of the left adrenal vein is not excluded. A contrast-enhanced CT of the abdomen only could be considered for further assessment. 3. The post gravid uterus is enlarged and heterogeneous. 4. Hyperdense material within the endometrial canal likely represents blood clots. 5. There are trace pleural effusions, as well as trace free fluid in the pelvis. ACT 112: Negative or not required by law. Electronically signed by: Chilo Monet M.D. 12/19/2021 2:55 PM Abdomen/Pelvis CT 12/19/21 15:[address] WITH IV CONTRAST CT DOSE: 416.25 mGy.cm HISTORY: Follow up study in a patient with acute left-sided adrenal hemorrhage and left sided p[aiub TECHNIQUE: Multiaxial CT images of the abdomen and pelvis were performed following the IV administration of 94 cc of Optiray, A dose lowering technique was utilized adhering to the principles of ALARA. COMPARISON STUDY: CT abdomen and pelvis of same day at 2:33 PM FINDINGS: Trace pleural effusions with mild bibasilar atelectasis. The imaged inferior cardiac chambers are unremarkable. The spleen, pancreas and right adrenal gland are unremarkable. Acute left adrenal gland hemorrhage with sarkis ctive surrounding edema and fluid within the retroperitoneum is unchanged. Probable thrombosis of the left renal vein on image 138 series 3. Unremarkable gallbladder and liver. Patency of the hepatic and portal veins. 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 Enlarged post gravid uterus with hyperdense material within the endometrial canal. Unremarkable urinary bladder. Aorta and IVC are unremarkable. No adenopathy. No bowel obstruction or bowel wall thickening. Mild fecal retention. Normal appendix. Unremarkable soft tissues. No acute fracture. IMPRESSION: 1. Unchanged appearance of the acute left adrenal hemorrhage with probable t hrombosis of the left adrenal vein. 2. Trace pleural effusions with mild bibasilar atelectasis. 3. Enlarged post gravid uterus with suggested blood products within the endomet rial canal. ACT 112: Negative or not required by law. The above report was generated using voice recognition software. It may contain grammatical, syntax or spelling errors. Electronically signed by: Jarret Mccullough M.D. 12/19/2021 4:28 PM Discharge Plan Visit Data Chief Complaint: Back Injury/Pain Stated Complaint: GAVE 12/14, BACK PAIN ED Provider: Danilo Moser Discharge Problem: Adrenal hemorrhage, DVT (deep venous thrombosis), Acute flank pain Patient Disposition: Being Evaluated by Hospitalist Forms Stand Alone Forms: [employer] Prescriptions Prescriptions: No Action prenat.vits,onel,[id number]-[id number] Tablet 1 tab PO DAILY RF: 0 (DME) breast pump Device See Rx Instructions .ROUTE .MEDSUPPLY Qty: 1 RF: 0 ferrous sulfate 325 mg (65 mg iron) Tablet,Delayed Release (Dr/Ec) 325 mg PO DAILY@08 Qty: 60 RF: 0 Referrals Referrals: Cristal Ramirez PA-C [Primary Care Provider] -
[2021-12-19 11:43] LABS: Microcytosis Present
[2021-12-19 11:44] LABS: Alanine Aminotransferase 42 U/L (7-52); Albumin Level 3.6 gm/dl (3.4-5.0); Alkaline Phosphatase 155 U/L (34-104); Anion Gap 8 (3-11); Aspartate Aminotransferase 29 U/L (13-39); BUN Creatinine Ratio 26.1 (10-20); Bilirubin,Total 0.2 mg/dl (0.2-1.0); Blood Urea Nitrogen 12 mg/dl (6-23); Calcium 8.7 mg/dl (8.5-10.1); Carbon Dioxide 26 mmol/L (21-32); Chloride 103 mmol/L (98-107); Creatinine Clr Calc Pharmacy 191.6 ml/min; Est GFR (African American) > 150.0 ml/min; Est GFR (Non-African American) 137.3 ml/min; Globulin 3.5 gm/dl (2.5-4.0); Glucose 83 mg/dl (70-99(Fasting)); Lipase 25 U/L (11-82); Potassium 3.6 mmol/L (3.5-5.1); Sodium 137 mmol/L (136-145); Total Protein 7.1 gm/dl (6.0-8.3)
--- NOTE | 2021-12-19 12:14 | Ultrasound Report ---
ULTRASOUND OF THE PELVIS CLINICAL HISTORY: pelvic pain. COMPARISON STUDY: No priors. TECHNIQUE: Real-time, grayscale, and color flow sonography of the pelvis is performed transabdominall y . Images are reviewed in the transverse and longitudinal planes. FINDINGS: Uterus: The post gravid uterus is enlarged and heterogeneous, measuring 16.7 x 7.7 x 11.0 cm. Uterus appears hyperemic on color imaging. Endometrium: The endometrium is mildly thickened and heterogeneous, measuring up to 1.5 cm. No abnorm al flow is shown on color imaging. Ovaries: The ovaries are normal in size and morphology. The right ovary measures 2.7 x 1.4 x 1.5 cm a nd the left ovary measures 3.0 x 2.0 x 1.5 cm. Normal Doppler waveforms are shown within both ovaries . Pelvis: There is no free fluid in the cul-de-sac. No concerning adnexal lesion is seen. IMPRESSION: 1. The post gravid uterus is enlarged and heterogeneous. 2. The endometrium is mildly thickened and heterogeneous measuring up to 1.5 cm. No abnormal flow is identified to suggest retained products of conception. 3. Unremarkable transabdominal sonographic evaluation of the ovaries. ACT 112: Negative or not required by law. Electronically signed by: Chilo Monet M.D. 12/19/2021 12:13 PM
--- NOTE | 2021-12-19 12:24 | Ultrasound Report ---
RENAL ULTRASOUND CLINICAL HISTORY: Left flank pain. COMPARISON STUDY: None. TECHNIQUE: Sonography of the kidneys and the urinary bladder was performed. FINDINGS: Right kidney measures 12.6 cm in maximal dimension and the left measures 13.7 cm. There is no hydronephrosis. Renal echogenicity, size and cortical thickness are normal. No renal calculus or m ass is identified. Bladder is suboptimally assessed given underdistention. Ureteral jets were not vis ualized IMPRESSION: Unremarkable sonographic appearance of the kidneys. No hydronephrosis. ACT 112: Negative or not required by law. Electronically signed by: Yung Hogan M.D. 12/19/2021 12:23 PM
[2021-12-19] MEDS: MoRPHine SULFATE 4 MG/ML 1 ML CARP\\VIAL IV PRN ×5 (12:36→20:37)
[2021-12-19 12:44] LABS: Appearance Urine Clear (Clear); Bacteria Urine Automated Negative (Negative); Bilirubin Urine Negative (Negative); Blood Urine 1+ (Negative); Color Urine Yellow; Epithelial Cell Urine Auto >30 /lpf (0-5); Glucose Urine UA Negative (Negative); Ketones Urine Negative (Negative); Leukocyte Esterase Urine Negative (Negative); Nitrite Urine Negative (Negative); Protein Urine Trace (Negative); RBC Urine Automated 0-4 /hpf (0-4); Specific Gravity Urine 1.026 (1.000-1.030); Urobilinogen Urine Negative (Negative)
--- NOTE | 2021-12-19 13:17 | XRay Report ---
KUB CLINICAL HISTORY: Left-sided abdominal pain. Recent delivery. FINDINGS: 2 AP supine abdominal radiographs are obtained. No prior studies are available for comparis on at the time of dictation. There is a nonobstructed abdominal bowel gas pattern noting moderate col onic fecal retention. No evidence of intraperitoneal free air is seen on these supine images. There a re no abnormal abdominal calcifications. Soft tissue density in the pelvis likely corresponds to the post gravid uterus. The bony structures appear intact. Diastases of the pubic symphysis may be relate d to recent delivery. IMPRESSION: 1. Moderate constipation. 2. Diastases of the pubic symphysis may be related to recent delivery. 3. Soft tissue density in the pelvis likely corresponds to the post gravid uterus. Electronically signed by: Chilo Monet M.D. 12/19/2021 1:16 PM
--- NOTE | 2021-12-19 14:56 | CT Scan Report ---
CT SCAN OF THE ABDOMEN AND PELVIS WITHOUT IV CONTRAST CLINICAL HISTORY: Left flank pain. COMPARISON STUDY: Abdominal radiograph dated 12/19/2021. TECHNIQUE: CT scan of the abdomen and pelvis is performed from the lung bases to the proximal femora. Images are reviewed in the axial, sagittal, and coronal planes. IV contrast was not administered for this examination. A dose lowering technique was utilized adhering to the principles of ALARA. CT DOSE: 475.63 mGy.cm FINDINGS: Lung bases: The heart is normal in size and without pericardial effusion. There are trace pleural eff usions with dependent atelectasis. Liver: The unenhanced liver is normal in size, contour, and attenuation. There is no intrahepatic ryan iary ductal dilatation. Gallbladder: Unremarkable. Spleen: Normal in size and attenuation. Pancreas: Unremarkable. Adrenal glands: There is hemorrhage of the left adrenal gland with surrounding inflammation and fluid . The left adrenal vein appears distended and hyperdense as seen on axial image #149. General vein th rombosis is not excluded. The right adrenal gland is normal in appearance.. Kidneys: The unenhanced kidneys are normal in size and without hydronephrosis. There are no renal onel culi identified. There is no evidence of contour deforming renal mass lesion. Infiltration around the upper pole of left kidney is likely related to adrenal hemorrhage. Abdominal vasculature: The abdominal aorta is normal in course and caliber. Bowel: There is mild to moderate colonic fecal retention. No bowel obstruction is identified. The veronika endix is well-visualized and normal. Peritoneum: There is no intraperitoneal free air or abdominal ascites. There is a fat-containing umbi lical hernia. Lymphadenopathy: None. Pelvic viscera: The bladder is normal as visualized. The post gravid uterus is enlarged and heterogen eous. Hyperdense material within the endometrial canal may represent blood products. No adnexal lesio n is seen. Trace free fluid is noted in the cul-de-sac. Skeletal structures: No lytic or blastic lesions are seen. Diastases of the pubic symphysis is likely related to recent delivery. IMPRESSION: 1. There is left adrenal hemorrhage with surrounding inflammation and fluid. 2. The left adrenal vein appears distended and hyperdense, and thrombosis of the left adrenal vein is not excluded. A contrast-enhanced CT of the abdomen only could be considered for further assessment. 3. The post gravid uterus is enlarged and heterogeneous. 4. Hyperdense material within the endometrial canal likely represents blood clots. 5. There are trace pleural effusions, as well as trace free fluid in the pelvis. ACT 112: Negative or not required by law. Electronically signed by: Chilo Monet M.D. 12/19/2021 2:55 PM
[2021-12-19 15:43] LABS: Partial Thromboplastin Time 25.1 Seconds (21.0-31.0); Prothrombin Time 9.7 Seconds (9.0-12.0)
[2021-12-19 15:56] LABS: Hemoglobin 9.1 g/dL (12.0-16.0); Mean Corpuscular Hemoglobin 20.8 pg (25-34); Mean Corpuscular Hgb Conc 28.4 g/dL (32-36); Mean Corpuscular Volume 73.1 fL (80-100); Mean Platelet Volume 10.1 fL (7.4-10.4); Platelet Count 345 K/uL (130-400); RDW Coefficient of Variation 18.2 % (11.5-14.5); Red Blood Count 4.38 M/uL (4.2-5.4); White Blood Count 14.17 K/uL (4.8-10.8)
[2021-12-19] MEDS ORDERED: OPTIRAY 320 100ml IV ONE (16:08)
[2021-12-19 16:14] LABS: Basophils # (auto) 0.02 K/uL (0-0.2); Basophils % (auto) 0.1 %; Eosinophils # (auto) 0.06 K/uL (0-0.5); Eosinophils % (auto) 0.4 %; Immature Granulocytes # (auto) 0.07 K/uL (0.00-0.02); Immature Granulocytes % (auto) 0.5 %; Lymphocytes # (auto) 2.22 K/uL (1.2-3.4); Lymphocytes % (auto) 15.7 %; Microcytosis Present; Monocytes # (auto) 0.95 K/uL (0.11-0.59); Monocytes % (auto) 6.7 %; Neutrophils # (auto) 10.85 K/uL (1.4-6.5); Neutrophils % (auto) 76.6 %
--- NOTE | 2021-12-19 16:30 | CT Scan Report ---
ABDOMEN AND PELVIS CT WITH IV CONTRAST CT DOSE: 416.25 mGy.cm HISTORY: Follow up study in a patient with acute left-sided adrenal hemorrhage and left si ded p[aiub TECHNIQUE: Multiaxial CT images of the abdomen and pelvis were performed following the IV administrat ion of 94 cc of Optiray, A dose lowering technique was utilized adhering to the principles of ALARA. COMPARISON STUDY: CT abdomen and pelvis of same day at 2:33 PM FINDINGS: Trace pleural effusions with mild bibasilar atelectasis. The imaged inferior cardiac chambe rs are unremarkable. The spleen, pancreas and right adrenal gland are unremarkable. Acute left adrena l gland hemorrhage with reactive surrounding edema and fluid within the retroperitoneum is unchanged. Probable thrombosis of the left renal vein on image 138 series 3. Unremarkable gallbladder and liver . Patency of the hepatic and portal veins. 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 Enla rged post gravid uterus with hyperdense material within the endometrial canal. Unremarkable urinary b ladder. Aorta and IVC are unremarkable. No adenopathy. No bowel obstruction or bowel wall thickening. Mild fecal retention. Normal appendix. Unremarkable so ft tissues. No acute fracture. IMPRESSION: 1. Unchanged appearance of the acute left adrenal hemorrhage with probable thrombosis of the left adr enal vein. 2. Trace pleural effusions with mild bibasilar atelectasis. 3. Enlarged post gravid uterus with suggested blood products within the endometrial canal. ACT 112: Negative or not required by law. The above report was generated using voice recognition software. It may contain grammatical, syntax o r spelling errors. Electronically signed by: Jarret Mccullough M.D. 12/19/2021 4:28 PM
--- NOTE | 2021-12-19 19:04 | History & Physical Report ---
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 There is no evidence of adrenal crisis at this time -Admit to PCU for close monitoring for adrenal crisis and hemorrhagic shock -Follow serial CBC every 4 hours -Type and screen, blood consent already obtained upon admission -If becomes unstable or has persistent hemorrhage, would need transfer to tertiary care facility for embolization -Watch for adrenal crisis-i.e. hypotension, electrolyte abnormalities -Hydrate aggressively with normal saline at 125 mL's per hour -Follow BMP, CBC, and a.m. cortisol -Consider repeat imaging in 24 hours with MRI abdomen -Would not anticoagulate for adrenal vein thrombosis at this time as below (2) DVT (deep venous thrombosis): Plan: Left adrenal vein suspected thrombosis seen on imaging Given adrenal hemorrhage as above, would not anticoagulate at this time -Repeat imaging tomorrow as above (3) Anemia: Plan: Hemoglobin mildly low to begin with due to recent and blood loss Continue ferrous sulfate p.o. Following serial CBC as above to watch for acute blood loss anemia from adrenal hemorrhage Typed and screened, blood consent obtained Transfuse if becomes unstable or hemoglobin less than 8 (4) Leukocytosis: Plan: WBC count elevated at 14, could be secondary to stress response from adrenal hemorrhage, recent , and anemia Follow CBC No fevers and no evidence of infection on any of her imaging, UA without evide nce of infection No blood cultures needed (5) Encounter for care and examination after delivery: Plan: Having mild lochia, no need for OB consultation at this time She is bottlefeeding Provide supportive care while from her (6) History of pre-eclampsia: Plan: No evidence of elevated blood pressures at this time Did not have preeclampsia with this most recent , but rather only with the first Plan: DVT prophylaxis-SCDs only given hemorrhage Disposition-admit to PCU, expect at least 2 midnight stay History of Present Illness Chief Complaint: Left-sided back pain Primary Care Provider: Cristal Ramirez PA-C This patient is a 26-year-old female who is 5 days from a full-term who presents with acute onset of left-sided flank pain on the morning of admission. She tried taking a warm bath to make it go away when it did not, she called her OB office but could not get a hold of them. Her drove her an hour and a half from home to this hospital. She did deliver her baby here as well. She denies any urinary symptoms. She is having some mild lochia. She is bottle feeding and not breast-feeding. In the ER, she had extensive work-up to include a KUB which showed constipation, pelvic ultrasound which showed post gravid enlarged and heterogenous uterus, but otherwise no acute abnormalities, a renal ultrasound which was unremarkable, and a CT scan of the abdomen/pelvis which was significant for left adrenal gland hemorrhage and left adrenal vein suspected thrombosis. Her hemoglobin was initially 10.0 and then dropped to 9.1 on repeat 4 hours later. She was mildly tachycardic but blood pressures remained normal, and she was afebrile, not hypoxic. She was given IV morphine for pain and Zofran as well as 1 L of normal saline in the ER. She will be admitted for management of adrenal gland hemorrhage and suspected adrenal vein thrombosis. I discussed her care with Dr. Au of hematology, Dr. Narayanan, as well as Dr. Goss of urology. Allergies Allergy/AdvReac Type Severity Reaction Status Date / Time No Known Allergies Allergy Verified 12/19/21 11:20 Home Medications Medication Instructions Recorded Confirmed Type prenat.vits,onel,wha-dnej-dgilc 1 tab PO DAILY 06/02/21 12/19/21 History breast pump #1 ea 11/15/21 12/13/21 Rx ferrous sulfate 325 mg (65 mg 325 mg PO DAILY@08 #60 tab 12/16/21 12/19/21 Rx iron) tablet,delayed release Past Med/Surg History Medical History (Updated 12/19/21 @ 19:28 by Ely Bauer MD) History of pre-eclampsia No known health problems Surgical History No history of previous surgery Family History (Updated 12/19/21 @ 19:19 by Ely Bauer MD) Father Hypertension Grandfather (Maternal) Myocardial infarction Mother Asthma Brother Hypertension Denies family history of Clotting disorder Social History Smoking Status: Never smoker Second Hand Exposure: No; Hx Alcohol Use: No Hx Substance Use: No Preferred Language: Slovenian Communication Ability: Effective Visual Impairment: No Limitations Hearing Ability: Normal Banquet Line Cook Required: No Beliefs That Will Affect Care: None marital status: marital status details: [place] (25) [phone] Current Living Situation: Spouse Current Living Situation Comment: lives wtih spouse and daughter, 4 dogs. current occupational status: unemployed Feels Safe at Home: Yes Seatbelt Use: always Do you think of yourself as: straight/heterosexual Gender Identity: Female Assistive Devices: None Review of Systems Review of Systems: All systems reviewed & are unremarkable except as noted in HPI & below Physical Exam Constitutional: WD/WN, vitals as above Eyes: PERRL, conjunctivae normal, anicteric sclerae ENMT: external ear and nose normal, oropharynx normal Neck: trachea midline, no thyromegaly Respiratory: normal respiratory effort, lungs clear to auscultation Cardiovascular: RRR, no murmur, no edema Chest (Breasts): Chest: normal inspection of chest Gastrointestinal (Abdomen): normal bowel sounds, soft, nontender, no hepatosplenomegaly Percussion/Palpation: + abdomen tender (Positive left CVA tenderness) Musculoskeletal: Extremities: extremities normal to inspection; no cyanosis and no clubbing Skin: no rashes, warm and dry Neurologic: moves all extremities and awake; no focal motor deficits Psychiatric: A+Ox3, euthymic affect Lymphatic: no lymphedema Results & Data Results & Data ([facility]) Vital Signs (Past 12 Hours) Vital Signs Temp Pulse Pulse Resp BP BP Pulse Ox 12/19/21 18:41 104 H 16 123/82 98 12/19/21 16:17 94 H 18 136/92 96 12/19/21 15:29 102 H 16 96 12/19/21 11:29 85 85 16 98 12/19/21 10:45 36.3 C L 97 H 18 127/88 97 Laboratory Results 12/19/21 12/19/21 12/19/21 Range/Units Unknown 19:11 19:11 WBC Pending (4.8-10.8) K/uL RBC Pending (4.2-5.4) M/uL Hgb Pending (12.0-16.0) g/dL Hct Pending (37-47) % MCV Pending (80-100) fL MCH Pending (25-34) pg MCHC Pending (32-36) g/dL RDW Std Deviation (36.4-46.3) fL RDW Coeff of Iram (11.5-14.5) % Plt Count Pending (130-400) K/uL MPV (7.4-10.4) fL Immature Gran % (Auto) % Neut % (Auto) % Lymph % (Auto) % Andrew % (Auto) % Eos % (Auto) % Baso % (Auto) % Neut # (Auto) (1.4-6.5) K/uL Lymph # (Auto) (1.2-3.4) K/uL Andrew # (Auto) (0.11-0.59) K/uL Eos # (Auto) (0-0.5) K/uL Baso # (Auto) (0-0.2) K/uL Immature Gran # (Auto) (0.00-0.02) K/uL Microcytosis PT (9.0-12.0) Seconds INR (0.9-1.1) APTT (21.0-31.0) Seconds PTT Ratio LA PTT Screen Protein C Activity Protein S Activity Antithrombin III Activ Factor V Leiden Mutat Factor V Leiden Interp Sodium Pending (136-145) mmol/L Potassium Pending (3.5-5.1) mmol/L Chloride Pending (98-107) mmol/L Carbon Dioxide Pending (21-32) mmol/L Anion Gap Pending (3-11) BUN Pending (6-23) mg/dl Creatinine Pending (0.6-1.2) mg/dl Est Cr Clr Drug Dosing Pending ml/min Est GFR ( Amer) Pending ml/min Est GFR (Non-Af Amer) Pending ml/min BUN/Creatinine Ratio Pending (10-20) Glucose Pending (70-99(Fasting)) mg/dl Calcium Pending (8.5-10.1) mg/dl Total Bilirubin (0.2-1.0) mg/dl AST (13-39) U/L ALT (7-52) U/L Alkaline Phosphatase (34-104) U/L Total Protein (6.0-8.3) gm/dl Albumin (3.4-5.0) gm/dl Globulin (2.5-4.0) gm/dl Albumin/Globulin Ratio (0.9-2) Lipase (11-82) U/L Homocysteine HCG, Quant mIU/ml Urine Color Yellow Urine Appearance Clear (Clear) Urine pH 6.0 (4.5-7.5) Ur Specific [place] 1.026 (1.000-1.030) Urine Protein Trace H (Negative) Urine Glucose (UA) Negative (Negative) Urine Ketones Negative (Negative) Urine Blood 1+ H (Negative) Urine Nitrite Negative (Negative) Urine Bilirubin Negative (Negative) Urine Urobilinogen Negative (Negative) Ur Leukocyte Esterase Negative (Negative) Urine WBC (Auto) 1-5 (0-5) /hpf Urine RBC (Auto) 0-4 (0-4) /hpf U Hyaline Cast (Auto) 1-5 (0-5) /lpf U Epithel Cells (Auto) >30 H (0-5) /lpf Urine Bacteria (Auto) Negative (Negative) Beta-2-GPI IgG Ab Beta-2-GPI IgM Ab Anti-Cardiolipin IgG Ab Anti-Cardiolipin IgM Ab SARS-CoV-2, RNA, NAAT (NEGATIVE) Prothrombin Gene Mutate Prothromb Gene Comment Blood Type Antibody Screen 12/19/21 12/19/21 12/19/21 Range/Units 19:11 17:03 17:03 WBC (4.8-10.8) K/uL RBC (4.2-5.4) M/uL Hgb (12.0-16.0) g/dL Hct (37-47) % MCV (80-100) fL MCH (25-34) pg MCHC (32-36) g/dL RDW Std Deviation (36.4-46.3) fL RDW Coeff of Iram (11.5-14.5) % Plt Count (130-400) K/uL MPV (7.4-10.4) fL Immature Gran % (Auto) % Neut % (Auto) % Lymph % (Auto) % Andrew % (Auto) % Eos % (Auto) % Baso % (Auto) % Neut # (Auto) (1.4-6.5) K/uL Lymph # (Auto) (1.2-3.4) K/uL Andrew # (Auto) (0.11-0.59) K/uL Eos # (Auto) (0-0.5) K/uL Baso # (Auto) (0-0.2) K/uL Immature Gran # (Auto) (0.00-0.02) K/uL Microcytosis PT (9.0-12.0) Seconds INR (0.9-1.1) APTT (21.0-31.0) Seconds PTT Ratio LA PTT Screen Protein C Activity Protein S Activity Antithrombin III Activ Factor V Leiden Mutat Pending Factor V Leiden Interp Pending Sodium (136-145) mmol/L Potassium (3.5-5.1) mmol/L Chloride (98-107) mmol/L Carbon Dioxide (21-32) mmol/L Anion Gap (3-11) BUN (6-23) mg/dl Creatinine (0.6-1.2) mg/dl Est Cr Clr Drug Dosing ml/min Est GFR ( Amer) ml/min Est GFR (Non-Af Amer) ml/min BUN/Creatinine Ratio (10-20) Glucose (70-99(Fasting)) mg/dl Calcium (8.5-10.1) mg/dl Total Bilirubin (0.2-1.0) mg/dl AST (13-39) U/L ALT (7-52) U/L Alkaline Phosphatase (34-104) U/L Total Protein (6.0-8.3) gm/dl Albumin (3.4-5.0) gm/dl Globulin (2.5-4.0) gm/dl Albumin/Globulin Ratio (0.9-2) Lipase (11-82) U/L Homocysteine Pending HCG, Quant mIU/ml Urine Color Urine Appearance (Clear) Urine pH (4.5-7.5) Ur Specific [place] (1.000-1.030) Urine Protein (Negative) Urine Glucose (UA) (Negative) Urine Ketones (Negative) Urine Blood (Negative) Urine Nitrite (Negative) Urine Bilirubin (Negative) Urine Urobilinogen (Negative) Ur Leukocyte Esterase (Negative) Urine WBC (Auto) (0-5) /hpf Urine RBC (Auto) (0-4) /hpf U Hyaline Cast (Auto) (0-5) /lpf U Epithel Cells (Auto) (0-5) /lpf Urine Bacteria (Auto) (Negative) Beta-2-GPI IgG Ab Beta-2-GPI IgM Ab Anti-Cardiolipin IgG Ab Anti-Cardiolipin IgM Ab SARS-CoV-2, RNA, NAAT (NEGATIVE) Prothrombin Gene Mutate Pending Prothromb Gene Comment Pending Blood Type Pending Antibody Screen Pending 12/19/21 12/19/21 12/19/21 Range/Units 17:03 17:03 15:44 WBC 14.17 H (4.8-10.8) K/uL RBC 4.38 (4.2-5.4) M/uL Hgb 9.1 L (12.0-16.0) g/dL Hct 32.0 L (37-47) % MCV 73.1 L (80-100) fL MCH 20.8 L (25-34) pg MCHC 28.4 L (32-36) g/dL RDW Std Deviation 47.0 H (36.4-46.3) fL RDW Coeff of Iram 18.2 H (11.5-14.5) % Plt Count 345 (130-400) K/uL MPV 10.1 (7.4-10.4) fL Immature Gran % (Auto) 0.5 % Neut % (Auto) 76.6 % Lymph % (Auto) 15.7 % Andrew % (Auto) 6.7 % Eos % (Auto) 0.4 % Baso % (Auto) 0.1 % Neut # (Auto) 10.85 H (1.4-6.5) K/uL Lymph # (Auto) 2.22 (1.2-3.4) K/uL Andrew # (Auto) 0.95 H (0.11-0.59) K/uL Eos # (Auto) 0.06 (0-0.5) K/uL Baso # (Auto) 0.02 (0-0.2) K/uL Immature Gran # (Auto) 0.07 H (0.00-0.02) K/uL Microcytosis Present PT (9.0-12.0) Seconds INR (0.9-1.1) APTT (21.0-31.0) Seconds PTT Ratio LA PTT Screen Pending Protein C Activity Pending Protein S Activity Pending Antithrombin III Activ Pending Factor V Leiden Mutat Factor V Leiden Interp Sodium (136-145) mmol/L Potassium (3.5-5.1) mmol/L Chloride (98-107) mmol/L Carbon Dioxide (21-32) mmol/L Anion Gap (3-11) BUN (6-23) mg/dl Creatinine (0.6-1.2) mg/dl Est Cr Clr Drug Dosing ml/min Est GFR ( Amer) ml/min Est GFR (Non-Af Amer) ml/min BUN/Creatinine Ratio (10-20) Glucose (70-99(Fasting)) mg/dl Calcium (8.5-10.1) mg/dl Total Bilirubin (0.2-1.0) mg/dl AST (13-39) U/L ALT (7-52) U/L Alkaline Phosphatase (34-104) U/L Total Protein (6.0-8.3) gm/dl Albumin (3.4-5.0) gm/dl Globulin (2.5-4.0) gm/dl Albumin/Globulin Ratio (0.9-2) Lipase (11-82) U/L Homocysteine HCG, Quant mIU/ml Urine Color Urine Appearance (Clear) Urine pH (4.5-7.5) Ur Specific [place] (1.000-1.030) Urine Protein (Negative) Urine Glucose (UA) (Negative) Urine Ketones (Negative) Urine Blood (Negative) Urine Nitrite (Negative) Urine Bilirubin (Negative) Urine Urobilinogen (Negative) Ur Leukocyte Esterase (Negative) Urine WBC (Auto) (0-5) /hpf Urine RBC (Auto) (0-4) /hpf U Hyaline Cast (Auto) (0-5) /lpf U Epithel Cells (Auto) (0-5) /lpf Urine Bacteria (Auto) (Negative) Beta-2-GPI IgG Ab Pending Beta-2-GPI IgM Ab Pending Anti-Cardiolipin IgG Ab Pending Anti-Cardiolipin IgM Ab Pending SARS-CoV-2, RNA, NAAT (NEGATIVE) Prothrombin Gene Mutate Prothromb Gene Comment Blood Type Antibody Screen 12/19/21 12/19/21 12/19/21 Range/Units 15:28 10:59 10:59 WBC (4.8-10.8) K/uL RBC (4.2-5.4) M/uL Hgb (12.0-16.0) g/dL Hct (37-47) % MCV (80-100) fL MCH (25-34) pg MCHC (32-36) g/dL RDW Std Deviation (36.4-46.3) fL RDW Coeff of Iram (11.5-14.5) % Plt Count (130-400) K/uL MPV (7.4-10.4) fL Immature Gran % (Auto) % Neut % (Auto) % Lymph % (Auto) % Andrew % (Auto) % Eos % (Auto) % Baso % (Auto) % Neut # (Auto) (1.4-6.5) K/uL Lymph # (Auto) (1.2-3.4) K/uL Andrew # (Auto) (0.11-0.59) K/uL Eos # (Auto) (0-0.5) K/uL Baso # (Auto) (0-0.2) K/uL Immature Gran # (Auto) (0.00-0.02) K/uL Microcytosis PT 9.7 (9.0-12.0) Seconds INR 1.0 (0.9-1.1) APTT 25.1 (21.0-31.0) Seconds PTT Ratio 1.0 LA PTT Screen Protein C Activity Protein S Activity Antithrombin III Activ Factor V Leiden Mutat Factor V Leiden Interp Sodium (136-145) mmol/L Potassium (3.5-5.1) mmol/L Chloride (98-107) mmol/L Carbon Dioxide (21-32) mmol/L Anion Gap (3-11) BUN (6-23) mg/dl Creatinine (0.6-1.2) mg/dl Est Cr Clr Drug Dosing ml/min Est GFR ( Amer) ml/min Est GFR (Non-Af Amer) ml/min BUN/Creatinine Ratio (10-20) Glucose (70-99(Fasting)) mg/dl Calcium (8.5-10.1) mg/dl Total Bilirubin (0.2-1.0) mg/dl AST (13-39) U/L ALT (7-52) U/L Alkaline Phosphatase (34-104) U/L Total Protein (6.0-8.3) gm/dl Albumin (3.4-5.0) gm/dl Globulin (2.5-4.0) gm/dl Albumin/Globulin Ratio (0.9-2) Lipase (11-82) U/L Homocysteine HCG, Quant 271 mIU/ml Urine Color Urine Appearance (Clear) Urine pH (4.5-7.5) Ur Specific [place] (1.000-1.030) Urine Protein (Negative) Urine Glucose (UA) (Negative) Urine Ketones (Negative) Urine Blood (Negative) Urine Nitrite (Negative) Urine Bilirubin (Negative) Urine Urobilinogen (Negative) Ur Leukocyte Esterase (Negative) Urine WBC (Auto) (0-5) /hpf Urine RBC (Auto) (0-4) /hpf U Hyaline Cast (Auto) (0-5) /lpf U Epithel Cells (Auto) (0-5) /lpf Urine Bacteria (Auto) (Negative) Beta-2-GPI IgG Ab Beta-2-GPI IgM Ab Anti-Cardiolipin IgG Ab Anti-Cardiolipin IgM Ab SARS-CoV-2, RNA, NAAT NEGATIVE (NEGATIVE) Prothrombin Gene Mutate Prothromb Gene Comment Blood Type Antibody Screen 12/19/21 12/19/21 Range/Units 10:59 10:59 WBC 14.04 H (4.8-10.8) K/uL RBC 4.70 (4.2-5.4) M/uL Hgb 10.0 L (12.0-16.0) g/dL Hct 34.3 L (37-47) % MCV 73.0 L (80-100) fL MCH 21.3 L (25-34) pg MCHC 29.2 L (32-36) g/dL RDW Std Deviation 47.0 H (36.4-46.3) fL RDW Coeff of Iram 18.4 H (11.5-14.5) % Plt Count 364 (130-400) K/uL MPV 10.1 (7.4-10.4) fL Immature Gran % (Auto) 0.7 % Neut % (Auto) 72.4 % Lymph % (Auto) 18.4 % Andrew % (Auto) 7.5 % Eos % (Auto) 0.9 % Baso % (Auto) 0.1 % Neut # (Auto) 10.16 H (1.4-6.5) K/uL Lymph # (Auto) 2.58 (1.2-3.4) K/uL Andrew # (Auto) 1.06 H (0.11-0.59) K/uL Eos # (Auto) 0.12 (0-0.5) K/uL Baso # (Auto) 0.02 (0-0.2) K/uL Immature Gran # (Auto) 0.10 H (0.00-0.02) K/uL Microcytosis Present PT (9.0-12.0) Seconds INR (0.9-1.1) APTT (21.0-31.0) Seconds PTT Ratio LA PTT Screen Protein C Activity Protein S Activity Antithrombin III Activ Factor V Leiden Mutat Factor V Leiden Interp Sodium 137 (136-145) mmol/L Potassium 3.6 (3.5-5.1) mmol/L Chloride 103 (98-107) mmol/L Carbon Dioxide 26 (21-32) mmol/L Anion Gap 8 (3-11) BUN 12 (6-23) mg/dl Creatinine 0.46 L (0.6-1.2) mg/dl Est Cr Clr Drug Dosing 191.6 ml/min Est GFR ( Amer) > 150.0 ml/min Est GFR (Non-Af Amer) 137.3 ml/min BUN/Creatinine Ratio 26.1 H (10-20) Glucose 83 (70-99(Fasting)) mg/dl Calcium 8.7 (8.5-10.1) mg/dl Total Bilirubin 0.2 (0.2-1.0) mg/dl AST 29 (13-39) U/L ALT 42 (7-52) U/L Alkaline Phosphatase 155 H (34-104) U/L Total Protein 7.1 (6.0-8.3) gm/dl Albumin 3.6 (3.4-5.0) gm/dl Globulin 3.5 (2.5-4.0) gm/dl Albumin/Globulin Ratio 1.0 (0.9-2) Lipase 25 (11-82) U/L Homocysteine HCG, Quant mIU/ml Urine Color Urine Appearance (Clear) Urine pH (4.5-7.5) Ur Specific [place] (1.000-1.030) Urine Protein (Negative) Urine Glucose (UA) (Negative) Urine Ketones (Negative) Urine Blood (Negative) Urine Nitrite (Negative) Urine Bilirubin (Negative) Urine Urobilinogen (Negative) Ur Leukocyte Esterase (Negative) Urine WBC (Auto) (0-5) /hpf Urine RBC (Auto) (0-4) /hpf U Hyaline Cast (Auto) (0-5) /lpf U Epithel Cells (Auto) (0-5) /lpf Urine Bacteria (Auto) (Negative) Beta-2-GPI IgG Ab Beta-2-GPI IgM Ab Anti-Cardiolipin IgG Ab Anti-Cardiolipin IgM Ab SARS-CoV-2, RNA, NAAT (NEGATIVE) Prothrombin Gene Mutate Prothromb Gene Comment Blood Type Antibody Screen Diagnostic Findings KUB X-Ray 12/19/21 11:07 KUB CLINICAL HISTORY: Left-sided abdominal pain. Recent delivery. FINDINGS: 2 AP supine abdominal radiographs are obtained. No prior studies are available for comparison at the time of dictation. There is a nonobstructed abdominal bowel gas pattern noting moderate colonic fecal retention. No evidence of intraperitoneal free air is seen on these supine images. There are no abnormal abdominal calcifications. Soft tissue density in the pelvis likely corresponds to the post gravid uterus. The bony structures appear intact. Diastases of the pubic symphysis may be related to recent delivery. IMPRESSION: 1. Moderate constipation. 2. Diastases of the pubic symphysis may be related to recent delivery. 3. Soft tissue density in the pelvis likely corresponds to the post gravid uterus. Electronically signed by: Chilo Monet M.D. 12/19/2021 1:16 PM Pelvis Ultrasound 12/19/21 11:07 ULTRASOUND OF THE PELVIS CLINICAL HISTORY: pelvic pain. COMPARISON STUDY: No priors. TECHNIQUE: Real-time, grayscale, and color flow sonography of the pelvis is performed transabdominally . Images are reviewed in the transverse and longitudinal planes. FINDINGS: Uterus: The post gravid uterus is enlarged and heterogeneous, measuring 16.7 x 7.7 x 11.0 cm. Uterus appears hyperemic on color imaging. Endometrium: The endometrium is mildly thickened and heterogeneous, measuring up to 1.5 cm. No abnormal flow is shown on color imaging. Ovaries: The ovaries are normal in size and morphology. The right ovary measures 2.7 x 1.4 x 1.5 cm and the left ovary measures 3.0 x 2.0 x 1.5 cm. Normal Doppler waveforms are shown within both ovaries. Pelvis: There is no free fluid in the cul-de-sac. No concerning adnexal lesion is seen. IMPRESSION: 1. The post gravid uterus is enlarged and heterogeneous. 2. The endometrium is mildly thickened and heterogeneous measuring up to 1.5 cm. No abnormal flow is identified to suggest retained products of conception. 3. Unremarkable transabdominal sonographic evaluation of the ovaries. ACT 112: Negative or not required by law. Electronically signed by: Chilo Monet M.D. 12/19/2021 12:13 PM Renal Ultrasound 12/19/21 11:07 RENAL ULTRASOUND CLINICAL HISTORY: Left flank pain. COMPARISON STUDY: None. TECHNIQUE: Sonography of the kidneys and the urinary bladder was performed. FINDINGS: Right kidney measures 12.6 cm in maximal dimension and the left measures 13.7 cm. There is no hydronephrosis. Renal echogenicity, size and cortical thickness are normal. No renal calculus or mass is identified. Bladder is suboptimally assessed given underdistention. Ureteral jets were not visualized IMPRESSION: Unremarkable sonographic appearance of the kidneys. No hydronephrosis. ACT 112: Negative or not required by law. Electronically signed by: Yung Hogan M.D. 12/19/2021 12:23 PM Abdomen/Pelvis CT 12/19/21 14:16 CT SCAN OF THE ABDOMEN AND PELVIS WITHOUT IV CONTRAST CLINICAL HISTORY: Left flank pain. COMPARISON STUDY: Abdominal radiograph dated 12/19/2021. TECHNIQUE: CT scan of the abdomen and pelvis is performed from the lung bases to the proximal femora. Images are reviewed in the axial, sagittal, and coronal planes. IV contrast was not administered for this examination. A dose lowering technique was utilized adhering to the principles of ALARA. CT DOSE: 475.63 mGy.cm FINDINGS: Lung bases: The heart is normal in size and without pericardial effusion. There are trace pleural effusions with dependent atelectasis. Liver: The unenhanced liver is normal in size, contour, and attenuation. There is no intrahepatic biliary ductal dilatation. Gallbladder: Unremarkable. Spleen: Normal in size and attenuation. Pancreas: Unremarkable. Adrenal glands: There is hemorrhage of the left adrenal gland with surrounding inflammation and fluid. The left adrenal vein appears distended and hyperdense as seen on axial image #149. General vein thrombosis is not excluded. The right adrenal gland is normal in appearance.. Kidneys: The unenhanced kidneys are normal in size and without hydronephrosis. There are no renal calculi identified. There is no evidence of contour deforming renal mass lesion. Infiltration around the upper pole of left kidney is likely related to adrenal hemorrhage. Abdominal vasculature: The abdominal aorta is normal in course and caliber. Bowel: There is mild to moderate colonic fecal retention. No bowel obstruction is identified. The appendix is well-visualized and normal. Peritoneum: There is no intraperitoneal free air or abdominal ascites. There is a fat-containing umbilical hernia. Lymphadenopathy: None. Pelvic viscera: The bladder is normal as visualized. The post gravid uterus is enlarged and heterogeneous. Hyperdense material within the endometrial canal may represent blood products. No adnexal lesion is seen. Trace free fluid is noted in the cul-de-sac. Skeletal structures: No lytic or blastic lesions are seen. Diastases of the pubic symphysis is likely related to recent delivery. IMPRESSION: 1. There is left adrenal hemorrhage with surrounding inflammation and fluid. 2. The left adrenal vein appears distended and hyperdense, and thrombosis of the left adrenal vein is not excluded. A contrast-enhanced CT of the abdomen only could be considered for further assessment. 3. The post gravid uterus is enlarged and heterogeneous. 4. Hyperdense material within the endometrial canal likely represents blood clots. 5. There are trace pleural effusions, as well as trace free fluid in the pelvis. ACT 112: Negative or not required by law. Electronically signed by: Chilo Monet M.D. 12/19/2021 2:55 PM Abdomen/Pelvis CT 12/19/21 15:[address] WITH IV CONTRAST CT DOSE: 416.25 mGy.cm HISTORY: Follow up study in a patient with acute left-sided adrenal hemorrhage and left sided p[aiub TECHNIQUE: Multiaxial CT images of the abdomen and pelvis were performed following the IV administration of 94 cc of Optiray, A dose lowering technique was utilized adhering to the principles of ALARA. COMPARISON STUDY: CT abdomen and pelvis of same day at 2:33 PM FINDINGS: Trace pleural effusions with mild bibasilar atelectasis. The imaged inferior cardiac chambers are unremarkable. The spleen, pancreas and right adrenal gland are unremarkable. Acute left adrenal gland hemorrhage with reactive surrounding edema and fluid within the retroperitoneum is unchanged. Probable thrombosis of the left renal vein on image 138 series 3. Unremarkable gallbladder and liver. Patency of the hepatic and portal veins. 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 Enlarged post gravid uterus with hyperdense material within the endometrial canal. Unremarkable urinary bladder. Aorta and IVC are unremarkable. No adenopathy. No bowel obstruction or bowel wall thickening. Mild fecal retention. Normal appendix. Unremarkable soft tissues. No acute fracture. IMPRESSION: 1. Unchanged appearance of the acute left adrenal hemorrhage with probable thrombosis of the left adrenal vein. 2. Trace pleural effusions with mild bibasilar atelectasis. 3. Enlarged post gravid uterus with suggested blood products within the endometrial canal. ACT 112: Negative or not required by law. The above report was generated using voice recognition software. It may contain grammatical, syntax or spelling errors. Electronically signed by: Jarret Mccullough M.D. 12/19/2021 4:28 PM Code Status & VTE Plan Code Status FULL CODE VTE Prophylaxis Plan VTE Prophylaxis will be ordered: Yes PG Care Time/CCT Total # of Minutes Spent Total Time Spent with Patient: Total time spent is greater than 50% in coordination of care (as documented) at patient's floor/unit and/or counseling patient: Coding Level of Care Code 48637 Initial Inpt Care Lvl 3 Diagnoses Adrenal hemorrhage E27.49 Anemia D64.9 DVT (deep venous thrombosis) I82.90 Chronicity: acute DVT location: non-extremity vein Leukocytosis D72.829 Encounter for care and examination after delivery Z39.2 History of pre-eclampsia Z87.59 (1) DVT (deep venous thrombosis) Chronicity: acute DVT location: non-extremity vein Qualified Code(s): I82.90 - Acute embolism and thrombosis of unspecified vein
[2021-12-19 19:22] LABS: Mean Corpuscular Hemoglobin 21.3 pg (25-34); Mean Corpuscular Volume 73.3 fL (80-100); Mean Platelet Volume 9.9 fL (7.4-10.4); Platelet Count 344 K/uL (130-400); RDW Coefficient of Variation 18.5 % (11.5-14.5); RDW Standard Deviation 47.7 fL (36.4-46.3); Red Blood Count 4.23 M/uL (4.2-5.4); White Blood Count 14.13 K/uL (4.8-10.8)
[2021-12-19 19:39] LABS: Anion Gap 7 (3-11); BUN Creatinine Ratio 16.7 (10-20); Blood Urea Nitrogen 7 mg/dl (6-23); Calcium 8.1 mg/dl (8.5-10.1); Carbon Dioxide 26 mmol/L (21-32); Chloride 104 mmol/L (98-107); Creatinine Clr Calc Pharmacy 209.8 ml/min; Est GFR (African American) > 150.0 ml/min; Est GFR (Non-African American) 141.5 ml/min; Glucose 74 mg/dl (70-99(Fasting)); Potassium 3.6 mmol/L (3.5-5.1); Sodium 137 mmol/L (136-145)
--- NOTE | 2021-12-19 20:36 | Urology Consultation ---
Date of Consultation December 19, 2021 Assessment & Plan (1) Adrenal hemorrhage: (2) DVT (deep venous thrombosis): The patient has been admitted on the hospitalist service. Document proceeding as follows: Follow serial hemoglobin and hematocrits Avoid any anticoagulants or antiplatelets, although does not appear the patient takes any these medicines Provide analgesics Provide antiemetics Hydration with IV fluids can be employed I discussed with the patient the findings of her CT scan. The thrombosis of her adrenal vein may merely be a complication of hypercoagulable state associated with . Consideration can be given to pursuing a hypercoagulable evaluation, we will defer this to the medical service. Concerning patient's adrenal hemorrhage, at the present time the patient is normotensive and not tachycardic. She has not exhibited a precipitous drop of her hemoglobin and hematocrit. We would recommend monitor this conservatively with serial labs as noted above. If patient has a precipitous drop of her hemoglobin and hematocrit or starts to develop signs or symptoms of hemodynamic instability consideration can be given to transferring her to a tertiary care center where interventional radiology is available for potential embolization. We will continue to follow along with the patient is hospitalized History of Present Illness Reason for Consultation: Left adrenal hemorrhage and left renal vein thrombosis History of Present Illness This is a 26-year-old female who is 5 days from a vaginal delivery. Patient notes that she was doing well following delivery of her child however she developed acute onset of left-sided flank pain this morning. Patient noted that she had a nauseated feeling but did not vomit. She did exhibit some lightheadedness. She did not note any modifying factors for the flank pain. She did describe the pain as a similar pain to what it felt like when she was having contractions during her delivery which prompted her to come to the emergency department as she had just delivered and she felt something was wrong. The patient denies any fevers, shakes, chills. Denies any chest pain or shortness of breath. Today in the emergency department patient had labs and imaging which I independently reviewed. The patient had a KUB that revealed only moderate constipation. There is no evidence of bowel obstruction. A pelvic ultrasound not show any evidence of retained products of conception. A renal ultrasound did not reveal any evidence of hydronephrosis. A CT scan of the abdomen and pelvis without IV contrast showed a left adrenal hemorrhage with surrounding inflammation. There is also concern for a left adrenal vein thrombosis. A CT scan abdomen pelvis was subsequently performed with IV contrast that showed again a left adrenal hemorrhage that was felt to be acute in nature with probable thrombosis of the left adrenal vein. Labs include a CBC her white blood cell count was 14.1. Hemoglobin and hematocrit were 9.0 and 31.0. Platelet count was noted to be normal. Review of records show that patient's hemoglobin has been running from approximately 8.4-10.0 since December 15 of this year. Coagulation studies were noted to be normal. Chemistry profile showed sodium and potassium were normal. BUN was also noted be normal and creatinine was actually low at 0.4. Urinalysis was not indicative of infection. A Covid test was noted to be negative. At the time of my interview the patient was resting comfortably in bed and she was in no distress. Allergies Allergy/AdvReac Type Severity Reaction Status Date / Time No Known Allergies Allergy Verified 12/19/21 11:20 Home Medications Medication Instructions Recorded Confirmed Type prenat.vits,onel,gjj-vvao-gmpka 1 tab PO DAILY 06/02/21 12/19/21 History breast pump #1 ea 11/15/21 12/13/21 Rx ferrous sulfate 325 mg (65 mg 325 mg PO DAILY@08 #60 tab 12/16/21 12/19/21 Rx iron) tablet,delayed release Patient History Medical History History of pre-eclampsia No known health problems Surgical History No history of previous surgery Family History Father Hypertension Grandfather (Maternal) Myocardial infarction Mother Asthma Brother Hypertension Denies family history of Clotting disorder Social History Smoking Status: Never smoker Second Hand Exposure: No; Hx Alcohol Use: No Hx Substance Use: No Preferred Language: Ukrainian Communication Ability: Effective Visual Impairment: No Limitations Hearing Ability: Normal [employer] Technician Required: No Beliefs That Will Affect Care: None marital status: marital status details: [place] (25) [phone] Current Living Situation: Spouse Current Living Situation Comment: lives wtih spouse and daughter, 4 dogs. current occupational status: unemployed Feels Safe at Home: Yes Seatbelt Use: always Do you think of yourself as: straight/heterosexual Gender Identity: Female Assistive Devices: None Review of Systems Constitutional: no fever and no chills Eyes: no diplopia Ear, Nose, Mouth, Throat: no ear pain Respiratory: no cough and no dyspnea Cardiovascular: no chest pain Gastrointestinal: + abdominal pain (Radiating from left flank) and + nausea; no vomiting Genitourinary: + flank pain (Left-sided); no dysuria Musculoskeletal: + back pain (Left flank) Integumentary: no rash Neurologic: no localized weakness Physical Exam Constitutional: well developed and well nourished; no acute distress Eyes: no conjunctival abnormality ENMT: Ears: no hearing impairment and no external ear abnormality Mouth: no oropharynx abnormality Neck: trachea midline Respiratory: normal respiratory effort, lungs clear to auscultation Cardiovascular: Rate/Rhythm: regular rate and regular rhythm Gastrointestinal (Abdomen): Abdomen is soft, nontender, nondistended. Pax sign is noted be negative. There is no evidence of Fernandez Macdonald sign. Musculoskeletal: No calf tenderness Skin: no rashes Neurologic: moves all extremities Psychiatric: A+Ox3, euthymic affect Genitourinary: + CVA tenderness (Left-sided with percussion; no right-sided CVA tenderness) Results & Data ([facility]) Vital Signs (Past 12 Hours) Vital Signs Temp Pulse Pulse Resp BP BP Pulse Ox 12/19/21 18:41 104 H 16 123/82 98 12/19/21 16:17 94 H 18 136/92 96 12/19/21 15:29 102 H 16 96 12/19/21 11:29 85 85 16 98 12/19/21 10:45 36.3 C L 97 H 18 127/88 97 PG Care Time/CCT Total # of Minutes Spent Total Time Spent with Patient: Total time spent is greater than 50% in coordination of care (as documented) at patient's floor/unit and/or counseling patient: Coding Level of Care Code 64352 Inpt Consult Level 5 Diagnoses Adrenal hemorrhage E27.49 DVT (deep venous thrombosis) I82.90 Chronicity: acute DVT location: non-extremity vein (1) DVT (deep venous thrombosis) Chronicity: acute DVT location: non-extremity vein Qualified Code(s): I82.90 - Acute embolism and thrombosis of unspecified vein
[2021-12-19] MEDS ORDERED: POLYETHYLENE (MIRALAX) 17 GM PACK PO PRN (21:32)
[2021-12-19] MEDS: SODIUM CHLORIDE 0.9% 1000ML 1,000 ML IV SCH (22:17)
[2021-12-19 22:25] LABS: Hematocrit (blood only) 32.1 % (37-47); Hemoglobin 9.2 g/dL (12.0-16.0); Mean Corpuscular Hemoglobin 21.2 pg (25-34); Mean Corpuscular Hgb Conc 28.7 g/dL (32-36); Mean Platelet Volume 9.9 fL (7.4-10.4); Platelet Count 343 K/uL (130-400); RDW Coefficient of Variation 18.6 % (11.5-14.5); RDW Standard Deviation 48.7 fL (36.4-46.3); Red Blood Count 4.34 M/uL (4.2-5.4); White Blood Count 14.78 K/uL (4.8-10.8)
[2021-12-19] MEDS: MoRPHine SULFATE 2 MG/ML CARP IV PRN (23:28)
[2021-12-20] MEDS: ACETAMINOPHEN 325 MG TAB PO PRN ×3 (00:14→17:03)
[2021-12-20] MEDS ORDERED: HYDROmorphone INJ 1 MG/ML SYRINGE IV STA (00:33)
[2021-12-20] MEDS: ONDANSETRON INJ 2 MG/ML 2 ML VIAL IV PRN ×2 (01:09→05:37)
[2021-12-20] MEDS: SODIUM CHLORIDE 0.9% 1000ML 1,000 ML IV SCH ×2 (06:10→19:36)
[2021-12-20] MEDS ORDERED: traMADol HCL 50 MG TABLET PO STA (08:03)
[2021-12-20] MEDS ORDERED: MELATONIN 3 MG TAB PO PRN (08:11)
--- NOTE | 2021-12-20 08:20 | Hospitalist Progress Note ---
Date of Service December 20, 2021 Assessment & Plan (1) History of pre-eclampsia: (2) Leukocytosis: (3) Anemia: (4) Adrenal hemorrhage: (5) DVT (deep venous thrombosis): (6) Acute flank pain: Plan: Gail Najera is a 26-year-old female on PPD#6 with PMH of preeclampsia (first ) who arrived with severe left flank pain and had findings on abdominal CT of left adrenal hemorrhage with probable thrombosis of left adrenal vein. Adrenal hemorrhage: - Suspect hypercoagulable state from and condition leading to thrombus, which developed into hemorrhage - AM cortisol was somewhat low - There is no evidence of adrenal crisis at this time -- watch for sings, i.e. hypotension, electrolyte abnormalities - Type and screen, blood consent already obtained upon admission - Urology consulted -- plan as documented at this time, avoid anticoagulants or antiplatelets - If becomes unstable or has persistent hemorrhage, would need transfer to tertiary care facility for embolization - Hydrate with normal saline at 125 mL's per hour -- given additional 1L bolus today due to single low BP measurement - Follow BMP, CBC - MRI abdomen this afternoon - Would not anticoagulate for adrenal vein thrombosis at this time as below - Pain control and antiemetics prn DVT (deep venous thrombosis): - Left adrenal vein suspected thrombosis seen on imaging - Given adrenal hemorrhage as above, would not anticoagulate at this time - Venous duplex of BLE ordered - Repeat imaging as above Anemia: - Hemoglobin mildly low to begin with due to recent and blood loss - Continue ferrous sulfate p.o. - Following CBC to watch for acute blood loss anemia from adrenal hemorrhage - Typed and screened, blood consent obtained - Transfuse if becomes unstable or hemoglobin less than 8 Leukocytosis: - WBC count elevated and now downtrending -- likely secondary to stress response from adrenal hemorrhage, recent , and anemia - Follow CBC - No fevers and no evidence of infection on any of her imaging, UA without evidence of infection - No blood cultures needed Encounter for care and examination after delivery: - Having mild lochia, no need for OB consultation at this time - She is bottlefeeding - Provide supportive care while from her History of pre-eclampsia: - No evidence of elevated blood pressures at this time - Did not have preeclampsia with this most recent , only with the first DVT prophylaxis: SCDs only given hemorrhage Disposition: PCU Diet: Regular CODE: FULL Admission and Anticipated Discharge Date Admission Date: December 19, 2021 Supervising Physician Co-Signing Physician Notes I also saw the patient with the resident physician and confirmed yanes portions the history and physical examination. I also discussed the case with urology. Agree with impression and plan as noted in the resident documentation. 26-year-old female 5 days vaginal delivery of her second child admitted to the hospital yesterday after she developed left-sided flank pain and was found to have an adrenal vein thrombosis with adrenal hemorrhage. This morning, she is relatively comfortable. She notes being tired and has a mild headache, but otherwise without complaints. She has no history of thrombosis herself. No previous miscarriages. No history of clotting disorders in her immediate family; perhaps an uncle with a history of a blood clot. Exam 116/72, 71, 16, 36.9, 94% room air She is alert and oriented. Speech is clear. HEENT is unremarkable Heart is regular Lungs are clear Abdomen is soft and nontender. Data WBC 11.6, hemoglobin 9.2, platelet count 341 Sodium 135, BUN 8, creatinine 0.38 A.m. cortisol 5.5 Imaging MRI of the abdomen today shows unchanged size of left sided renal hemorrhage, trace pleural effusions, large post gravid uterus, and mild bilateral hydroureteronephrosis. Ultrasound of the lower extremities is negative for DVT. Impression and plan left-sided adrenal vein thrombosis with associated hemorrhage Hemodynamic and metabolic stability Appreciate urology consultation We will monitor electrolytes, hemoglobin, and hemodynamics overnight If drop in hemoglobin or develops hemodynamic instability, which is unlikely, will discuss transfer to tertiary care center for IR Hypercoagulability work-up is pending Subjective Patient had headache with associated nausea and vomiting this morning. She had received acetaminophen shortly before and due to her hemorrhage antiplatelet medications were to be avoided so NSAIDs were not an option as such she was given a single dose of tramadol, which helped decrease the pain. She declined antiemetic medication. Shortly after I saw her at bedside and she reported that her headache was better. She felt that it was more related to her spending a lot of time in bed. She otherwise has no current complaints and feels her left flank pain is now resolved. Review of Systems Review of Systems: Denies f/c, n/v, CP, palp, SOB, cough, dizziness, neuro deficits, abd pain, flank pain Physical Exam Physical Exam: GENERAL: A&Ox3. NAD. HEENT: PERRL, EOMI. Moist mucous membranes. CHEST/LUNGS: CTAB A/P. No crackles, wheezes, rales, rhonchi. HEART: RRR. No m/g/r. No carotid bruits. ABDOMEN: NT/ND, soft. BS+ x4. EXTREMITIES: No cyanosis, no clubbing, no edema SKIN: Warm and dry. No rashes or lesions. PSYCHIATRIC: Euthymic affect, no SI, no pressured speech, no hallucinations NEUROLOGIC: The patient has 5/5 strength x4 extremities. Sensation intact. CN II-XII grossly intact. Results & Data Results & Data ([facility]) Vital Signs (Past 12 Hours) Vital Signs Temp Pulse Pulse Resp BP Pulse Ox 12/20/21 08:00 37.0 C 86 18 102/56 L 95 12/20/21 03:40 36.3 C L 77 18 122/74 95 12/20/21 01:27 37.0 C 75 18 135/88 97 12/20/21 00:30 36.4 C 95 H 15 142/88 H 96 12/20/21 00:21 92 H 13 132/106 H 97 12/19/21 22:28 36.4 C L 76 18 135/88 95 12/19/21 21:27 80 15 167/99 H 92 Resident Activity Tracking Resident Involvement: Resident Care Provided Care Provided: Adult Hospital Medicine (1) DVT (deep venous thrombosis) Chronicity: acute DVT location: non-extremity vein Qualified Code(s): I82.90 - Acute embolism and thrombosis of unspecified vein
[2021-12-20 09:06] LABS: Hematocrit (blood only) 32.2 % (37-47); Hemoglobin 9.2 g/dL (12.0-16.0); Mean Corpuscular Hemoglobin 21.1 pg (25-34); Mean Corpuscular Hgb Conc 28.6 g/dL (32-36); Mean Corpuscular Volume 73.7 fL (80-100); Mean Platelet Volume 9.7 fL (7.4-10.4); Platelet Count 341 K/uL (130-400); RDW Coefficient of Variation 18.9 % (11.5-14.5); RDW Standard Deviation 49.2 fL (36.4-46.3); Red Blood Count 4.37 M/uL (4.2-5.4); White Blood Count 11.86 K/uL (4.8-10.8)
[2021-12-20 09:11] LABS: Anion Gap 5 (3-11); BUN Creatinine Ratio 21.1 (10-20); Blood Urea Nitrogen 8 mg/dl (6-23); Calcium 8.2 mg/dl (8.5-10.1); Carbon Dioxide 27 mmol/L (21-32); Chloride 103 mmol/L (98-107); Creatinine Clr Calc Pharmacy 231.5 ml/min; Est GFR (African American) > 150.0 ml/min; Est GFR (Non-African American) 146.2 ml/min; Glucose 82 mg/dl (70-99(Fasting)); Potassium 3.6 mmol/L (3.5-5.1); Sodium 135 mmol/L (136-145)
[2021-12-20 09:19] LABS: Basophils # (auto) 0.02 K/uL (0-0.2); Basophils % (auto) 0.2 %; Eosinophils # (auto) 0.15 K/uL (0-0.5); Eosinophils % (auto) 1.3 %; Immature Granulocytes # (auto) 0.04 K/uL (0.00-0.02); Immature Granulocytes % (auto) 0.3 %; Lymphocytes # (auto) 2.28 K/uL (1.2-3.4); Lymphocytes % (auto) 19.2 %; Monocytes % (auto) 7.6 %; Neutrophils # (auto) 8.47 K/uL (1.4-6.5); Neutrophils % (auto) 71.4 %; Ovalocytes 1+
[2021-12-20] MEDS: MoRPHine SULFATE 2 MG/ML CARP IV PRN ×4 (09:48→22:41)
[2021-12-20] MEDS: PRENATAL VITAMIN 1 TAB PO SCH (09:51)
[2021-12-20] MEDS: POLYETHYLENE (MIRALAX) 17 GM PACK PO SCH (09:51)
[2021-12-20] MEDS: FERROUS SULFATE 325 MG TAB PO SCH (09:53)
[2021-12-20] MEDS ORDERED: SODIUM CHLORIDE 0.9% 1000ML 1,000 ML IV ONE (10:51)
[2021-12-20 10:54] LABS: Alkaline Phosphatase 125 U/L (34-104)
[2021-12-20 11:20] LABS: Alanine Aminotransferase 29 U/L (7-52); Albumin Level 3.1 gm/dl (3.4-5.0); Aspartate Aminotransferase 17 U/L (13-39); Bilirubin,Total 0.3 mg/dl (0.2-1.0); Globulin 3.1 gm/dl (2.5-4.0); Total Protein 6.2 gm/dl (6.0-8.3)
[2021-12-20] MEDS ORDERED: GADOBUTROL 65ML VIAL IV ONE (12:48)
--- NOTE | 2021-12-20 14:02 | Ultrasound Report ---
BILATERAL LOWER EXTREMITY VENOUS DOPPLER HISTORY: Acute pain and swelling of the lower legs Adrenal thrombus, r/o DVT COMPARISON STUDY: None. FINDINGS: There is normal compressibility, flow, and augmentation within the bilateral lower extremit y deep venous systems. IMPRESSION: No DVT within the right or left lower extremity. ACT 112: Negative or not required by law. Electronically signed by: Jarret Mccullough M.D. 12/20/2021 2:00 PM
--- NOTE | 2021-12-20 14:11 | Urology Progress Note ---
Date of Service December 20, 2021 Assessment & Plan (1) Adrenal hemorrhage: (2) DVT (deep venous thrombosis): Plan: 26 yo F recently post admitted for severe left flank pain secondary to adrenal hemorrhage and adrenal vein thrombosis. - Pt afebrile and remains hemodynamically stable. - Lab work reviewed - creatinine 0.38, WBC 11.86, Hgb 9.2/Hct 32.2 - continue to trend. - Left flank pain has resolved. - Hypercoagulable work-up initiated per hospital service. - Reviewed case and imaging with Dr. Davison. - Recommend continue to monitor conservatively with serial labs as noted above. - If her H/H drops precipitously or she develop s/s of hemodynamic instability, then consideration can be given to transferring her to a tertiary care center where interventional radiology is available. - Continue supportive care and management per primary service. - Patient can follow-up with PCP outpatient for ongoing monitoring - CT and H/H in 1 month. Thank you for allowing us to participate in the acute care of Ms. Najera. Please reconsult us with additional questions, concerns or changes in patient status. Admission and Anticipated Discharge Date Admission Date: December 19, 2021 Subjective Pt seen and examined at bedside this afternoon. Awake, alert and sitting up in bed. Notes a headache at present, but otherwise subjectively doing well. Left flank pain resolved. Voiding spontaneously. No nausea or vomiting. No fever or chills. Offers no additional concerns at present. Review of Systems Constitutional: as per Subjective / HPI Gastrointestinal: as per Subjective / HPI Genitourinary: as per Subjective / HPI Physical Exam Constitutional: well developed and well nourished; no acute distress and not ill appearing Neck: normal visual inspection Respiratory: normal respiratory effort and able to speak in complete sentences; no respiratory distress and no labored breathing Cardiovascular: Extremities: no pedal edema Gastrointestinal (Abdomen): Inspection/Auscultation: abdomen normal to inspection; abdomen not distended Neurologic: moves all extremities and awake Psychiatric: Orientation: alert, oriented x 3 and cooperative Results & Data ([place]) Vital Signs (Past 12 Hours) Vital Signs Temp Pulse Pulse Resp BP Pulse Ox 12/20/21 12:00 36.9 C 71 16 116/72 94 12/20/21 10:46 78 12/20/21 08:00 37.0 C 86 18 102/56 L 95 12/20/21 03:40 36.3 C L 77 18 122/74 95 PG Care Time/CCT Total # of Minutes Spent Total Time Spent with Patient: Total time spent is greater than 50% in coordination of care (as documented) at patient's floor/unit and/or counseling patient: Coding Level of Care Code 97720 Subseq Hosp Care Lvl 2 Diagnoses Adrenal hemorrhage E27.49 DVT (deep venous thrombosis) I82.90 Chronicity: acute DVT location: non-extremity vein (1) DVT (deep venous thrombosis) Chronicity: acute DVT location: non-extremity vein Qualified Code(s): I82.90 - Acute embolism and thrombosis of unspecified vein
--- NOTE | 2021-12-20 15:03 | Magnetic Resonance Report ---
MR abdomen wo/w con HISTORY: 26 years-old Female left adrenal hemorrhage acute left-sided flank pain with adr enal hemorrhage COMPARISON: CT abdomen pelvis 12/19/2021 TECHNIQUE: Multi planar multisequence MRI of the abdomen was obtained both with and without the use o f 7.7 cc Gadavist FINDINGS: Trace pleural effusions with suggested left basilar atelectasis. The imaged inferior cardiac chambers are unremarkable. The spleen, pancreas, gallbladder and liver appear unremarkable. Normal right adre nal gland. Unchanged appearance of the acute left-sided adrenal hemorrhage with trace edema and fluid within the left retroperitoneum. Asymmetric enlargement of the left adrenal gland. The thrombosed le ft adrenal vein is better seen on the prior CT study. Aorta and IVC are unremarkable. No bowel obstru ction or bowel wall thickening. Moderate fecal retention. Enlarged heterogeneous gravid uterus is par tially imaged. Unremarkable soft tissues and osseous structures. 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 Mild bilateral hydroureteronephrosis. IMPRESSION: 1. Unchanged size of the acute left-sided adrenal hemorrhage. 2. Trace pleural effusions. 3. Enlarged post gravid uterus. 4. Mild bilateral hydroureteronephrosis with duplicated right-sided renal collecting system and urete rs. ACT 112: Negative or not required by law. The above report was generated using voice recognition software. It may contain grammatical, syntax o r spelling errors. Electronically signed by: Jarret Mccullough M.D. 12/20/2021 3:02 PM
[2021-12-20] MEDS ORDERED: LORazepam 1 MG TAB PO STA (22:14)
[2021-12-21] MEDS: MoRPHine SULFATE 2 MG/ML CARP IV PRN ×3 (02:55→10:05)
[2021-12-21] MEDS: SODIUM CHLORIDE 0.9% 1000ML 1,000 ML IV SCH ×2 (04:01→08:10)
--- NOTE | 2021-12-21 06:55 | Hospitalist Progress Note ---
Date of Service December 21, 2021 Assessment & Plan (1) History of pre-eclampsia: (2) Leukocytosis: (3) Anemia: (4) Adrenal hemorrhage: (5) DVT (deep venous thrombosis): (6) Acute flank pain: Plan: Gail Najera is a 26-year-old female on PPD#6 with PMH of preeclampsia (first ) who arrived with severe left flank pain and had findings on abdominal CT of left adrenal hemorrhage with probable thrombosis of left adrenal vein. Adrenal hemorrhage: - Suspect hypercoagulable state from and condition leading to thrombus, which developed into hemorrhage - AM cortisol was somewhat low - There is no evidence of adrenal crisis at this time -- watch for sings, i.e. hypotension, electrolyte abnormalities - Type and screen, blood consent already obtained upon admission - Urology consulted -- plan as documented at this time, avoid anticoagulants or antiplatelets - If becomes unstable or has persistent hemorrhage, would need transfer to tertiary care facility for embolization - Hydrate with normal saline at 125 mL's per hour -- given additional 1L bolus today due to single low BP measurement - Follow BMP, CBC - MRI abdomen with unchanged size of left sided renal hemorrhage, trace pleural effusions, large post gravid uterus, and mild bilateral hydroureteronephrosis - Would not anticoagulate for adrenal vein thrombosis at this time as below - Pain control and antiemetics prn DVT (deep venous thrombosis): - Left adrenal vein suspected thrombosis seen on imaging - Given adrenal hemorrhage as above, would not anticoagulate at this time - Venous duplex of BLE negative for DVT - Repeat imaging as above - 12/20: Due to persistent PALMA refractory to APAP and morphine as well as an episode of vomiting with the headache, ordered MR-V of the head - Patient initially declined due to claustrophobia - However, later in the evening accepted to have study done with PO Ativan as pretreatment - MR venogram of head/brain showed no dural venous sinus thrombosis Anemia: - Hemoglobin mildly low to begin with due to recent and blood loss - Continue ferrous sulfate p.o. - Following CBC to watch for acute blood loss anemia from adrenal hemorrhage - Typed and screened, blood consent obtained - Transfuse if becomes unstable or hemoglobin less than 8 Leukocytosis: - WBC count elevated and now downtrending -- likely secondary to stress response from adrenal hemorrhage, recent , and anemia - Follow CBC - No fevers and no evidence of infection on any of her imaging, UA without evidence of infection - No blood cultures needed Encounter for care and examination after delivery: - Having mild lochia, no need for OB consultation at this time - She is bottlefeeding - Provide supportive care while from her History of pre-eclampsia: - No evidence of elevated blood pressures at this time - Did not have preeclampsia with this most recent , only with the first DVT prophylaxis: SCDs only given hemorrhage Disposition: PCU Diet: Regular CODE: FULL Admission and Anticipated Discharge Date Admission Date: December 19, 2021 Review of Systems Review of Systems: Denies f/c, n/v, CP, palp, SOB, cough, dizziness, neuro deficits, abd pain, flank pain Physical Exam Physical Exam: GENERAL: A&Ox3. NAD. HEENT: PERRL, EOMI. Moist mucous membranes. CHEST/LUNGS: CTAB A/P. No crackles, wheezes, rales, rhonchi. HEART: RRR. No m/g/r. No carotid bruits. ABDOMEN: NT/ND, soft. BS+ x4. EXTREMITIES: No cyanosis, no clubbing, no edema SKIN: Warm and dry. No rashes or lesions. PSYCHIATRIC: Euthymic affect, no SI, no pressured speech, no hallucinations NEUROLOGIC: The patient has 5/5 strength x4 extremities. Sensation intact. CN II-XII grossly intact. Results & Data Results & Data ([facility]) Vital Signs (Past 12 Hours) Vital Signs Temp Pulse Pulse Resp BP Pulse Ox 12/21/21 04:15 37.4 C 111 H 18 136/92 97 12/21/21 01:49 111 H 12/20/21 23:33 36.7 C 109 H 18 143/89 H 99 12/20/21 19:46 37.6 C H 88 18 133/88 96 (1) DVT (deep venous thrombosis) Chronicity: acute DVT location: non-extremity vein Qualified Code(s): I82.90 - Acute embolism and thrombosis of unspecified vein
[2021-12-21 06:58] LABS: Basophils # (auto) 0.02 K/uL (0-0.2); Basophils % (auto) 0.1 %; Eosinophils # (auto) 0.18 K/uL (0-0.5); Eosinophils % (auto) 1.3 %; Hematocrit (blood only) 32.7 % (37-47); Hemoglobin 9.5 g/dL (12.0-16.0); Immature Granulocytes # (auto) 0.04 K/uL (0.00-0.02); Immature Granulocytes % (auto) 0.3 %; Lymphocytes # (auto) 2.15 K/uL (1.2-3.4); Lymphocytes % (auto) 15.1 %; Mean Corpuscular Hemoglobin 20.9 pg (25-34); Mean Corpuscular Hgb Conc 29.1 g/dL (32-36); Mean Corpuscular Volume 71.9 fL (80-100); Mean Platelet Volume 10.1 fL (7.4-10.4); Monocytes % (auto) 10.5 %; Neutrophils # (auto) 10.35 K/uL (1.4-6.5); Neutrophils % (auto) 72.7 %; Platelet Count 368 K/uL (130-400); RDW Coefficient of Variation 18.7 % (11.5-14.5); RDW Standard Deviation 47.9 fL (36.4-46.3); Red Blood Count 4.55 M/uL (4.2-5.4); White Blood Count 14.24 K/uL (4.8-10.8)
[2021-12-21 07:20] LABS: Microcytosis Present
--- NOTE | 2021-12-21 07:26 | Magnetic Resonance Report ---
MR venography head wo con HISTORY: headache, post , clot in adrenal vein TECHNIQUE: MRV of the brain was performed without contrast according to standard departmental protoco l. COMPARISON STUDY: None. FINDINGS: The visualized bilateral internal jugular veins, sigmoid sinuses, transverse sinuses, sagit dhruv sinus, straight sinus, vein of Demetri, internal cerebral veins are patent. IMPRESSION: No evidence for dural venous sinus thrombosis. ACT 112: Negative or not required by law. Electronically signed by: Sudeep Jacobson M.D. 12/21/2021 7:25 AM
[2021-12-21 07:28] LABS: Alanine Aminotransferase 26 U/L (7-52); Albumin Level 3.2 gm/dl (3.4-5.0); Alkaline Phosphatase 139 U/L (34-104); Anion Gap 11 (3-11); Aspartate Aminotransferase 18 U/L (13-39); BUN Creatinine Ratio 10.3 (10-20); Bilirubin,Total 0.4 mg/dl (0.2-1.0); Blood Urea Nitrogen 4 mg/dl (6-23); Calcium 8.4 mg/dl (8.5-10.1); Carbon Dioxide 23 mmol/L (21-32); Chloride 102 mmol/L (98-107); Creatinine Clr Calc Pharmacy 225.7 ml/min; Est GFR (African American) > 150.0 ml/min; Globulin 3.3 gm/dl (2.5-4.0); Glucose 76 mg/dl (70-99(Fasting)); Magnesium 1.7 mg/dl (1.7-2.4); Phosphorus 3.8 mg/dl (2.5-4.9); Potassium 3.5 mmol/L (3.5-5.1); Sodium 136 mmol/L (136-145); Total Protein 6.5 gm/dl (6.0-8.3)
[2021-12-21] MEDS: PRENATAL VITAMIN 1 TAB PO SCH (08:21)
[2021-12-21] MEDS: POLYETHYLENE (MIRALAX) 17 GM PACK PO SCH (08:21)
[2021-12-21] MEDS: FERROUS SULFATE 325 MG TAB PO SCH (08:21)
--- NOTE | 2021-12-21 12:24 | Discharge Summary ---
Date of Service December 21, 2021 Admission HPI Per Admitting Provider This patient is a 26-year-old female who is 5 days from a full-term who presents with acute onset of left-sided flank pain on the morning of admission. She tried taking a warm bath to make it go away when it did not, she called her OB office but could not get a hold of them. Her drove her an hour and a half from home to this hospital. She did deliver her baby here as well. She denies any urinary symptoms. She is having some mild lochia. She is bottle feeding and not breast-feeding. In the ER, she had extensive work-up to include a KUB which showed constipation, pelvic ultrasound which showed post gravid enlarged and heterogenous uterus, but otherwise no acute abnormalities, a renal ultrasound which was unremarkable, and a CT scan of the abdomen/pelvis which was significant for left adrenal gland hemorrhage and left adrenal vein suspected thrombosis. Her hemoglobin was initially 10.0 and then dropped to 9.1 on repeat 4 hours later. She was mildly tachycardic but blood pressures remained normal, and she was afebrile, not hypoxic. She was given IV morphine for pain and Zofran as well as 1 L of normal saline in the ER. She will be admitted for management of adrenal gland hemorrhage and suspected adrenal vein thrombosis. I discussed her care with Dr. Au of hematology, Dr. Narayanan, as well as Dr. Goss of urology. Principal Diagnosis Adrenal hemorrhage Discharge Exam GENERAL: A&Ox3. NAD. HEENT: PERRL, EOMI. Moist mucous membranes. CHEST/LUNGS: CTAB A/P. No crackles, wheezes, rales, rhonchi. HEART: RRR. No m/g/r. No carotid bruits. ABDOMEN: NT/ND, soft. BS+ x4. EXTREMITIES: No cyanosis, no clubbing, no edema SKIN: Warm and dry. No rashes or lesions. PSYCHIATRIC: Euthymic affect, no SI, no pressured speech, no hallucinations NEUROLOGIC: The patient has 5/5 strength x4 extremities. Sensation intact. CN II-XII grossly intact. Discharge Data Allergies Allergy/AdvReac Type Severity Reaction Status Date / Time No Known Allergies Allergy Verified 12/19/21 11:20 Consultations 12/19/21 17:36 ED Decision to Admit Stat 12/19/21 19:54 Consult Urology Routine Ordered Studies 12/19/21 11:07 US pelvic complete Stat US renal/blad retro comp Stat 12/19/21 14:16 CT abd pelvis wo con Stat 12/19/21 15:45 CT abd pelvis IV con only Stat 12/20/21 13:00 US venous doppler LE BI Routine 12/20/21 15:00 MR abdomen wo/w con Routine 12/20/21 16:34 MR venography head wo con Stat Hospital Course (1) History of pre-eclampsia: (2) Leukocytosis: (3) Anemia: (4) Adrenal hemorrhage: (5) DVT (deep venous thrombosis): (6) Acute flank pain: Gail Najera is a 26-year-old female with PMH of preeclampsia (first ) who recently gave to her second child and arrived with severe left flank pain. Had findings on abdominal CT of left adrenal hemorrhage with probable thrombosis of left adrenal vein. Adrenal hemorrhage: - Suspect hypercoagulable state from and condition leading to thrombus, which developed into hemorrhage - AM cortisol was somewhat low -- could consider repeating after period, as cortisol may be abnormal in that period - No evidence of adrenal crisis at this time -- did not develop significant hypotension or electrolyte abnormalities while admitted, remained stable - Urology consulted -- no immediate need for intervention, monitor hemodynamics - MRI abdomen with unchanged size of left sided renal hemorrhage, trace pleural effusions, large post gravid uterus, and mild bilateral hydroureteronephrosis - Would not anticoagulate for adrenal vein thrombosis at this time as below - Will be DC home with instructions to f/u with PCP -- consider rechecking electrolytes as outpatient DVT (deep venous thrombosis): - Left adrenal vein suspected thrombosis seen on imaging - Given adrenal hemorrhage as above, would not anticoagulate at this time - Venous duplex of BLE negative for DVT - Repeat imaging with MRI as above - 12/20: Due to persistent PALMA refractory to APAP and morphine as well as an episode of vomiting with the headache, ordered MR-V of the head - Patient initially declined due to claustrophobia - However, later in the evening accepted to have study done with PO Ativan as pretreatment - MR venogram of head/brain showed no dural venous sinus thrombosis - Hypercoagulable work-up sent -- pending at time of DC and will be contacted with results - If any abnormalities would require risk/benefit discussion of possible anticoagulation versus a [id number] approach in case she did have any further DVTs Anemia: - Hemoglobin mildly low to begin with due to recent and blood loss - Continue ferrous sulfate p.o. -No significant acute blood loss anemia in the setting of adrenal hemorrhage, hemoglobin remained stable Leukocytosis: - WBC count initially elevated and subsequentlydowntrending -- likely secondary to stress response from adrenal hemorrhage, recent , and anemia - No fevers and no evidence of infection on any of her imaging, UA without evidence of infection - No blood cultures needed History of pre-eclampsia: - No evidence of elevated blood pressures, elevated liver enzymes, or platelet abnormalities - Did not have preeclampsia with this most recent , only with the first Disposition: Home - Self care Total Time Total Time Spent Total Time Spent (In Minutes): See attending attestation Discharge Plan Discharge Items Patient Disposition: Home - Self-Care Reason For Visit: ADRENNAL HEMORRHAGE Discharge Diagnosis: Adrenal hemorrhage Activity: Per Instructions section Non-emergency contact: Primary Care Provider Call non-emergency contact if: you have any medication questions and your symptoms worsen Follow-up/Referrals: Cristal Ramirez PA-C [Primary Care Provider] - Diet: Regular Addtl Attending Provider Instructions: Youi were admitted to [facility] due to flank/back pain that was found to be due to a hemorrhage of your left adrenal gland. This was most likely caused by a blood clot in the adrenal vein, which subsequently developed into a bleed. The cause of the blood clot is unclear, but makes you more likely to develop blood clots so this is the most likely cause. However, lab studies have been collected to rule out any genetic clotting abnormality. These studies are still pending and you will be contacted with the results. We also ruled out blood clots in other parts of your body where they can commonly occur, specifically your legs and your brain. The imaging studies were negative for any clots in these areas. Going forward, we recommend that you follow up with your primary care provider to discuss your hospitalization. It will be prudent to have your blood pressure checked, and possibly repeat lab work to make sure your electrolytes remain normal. You will not require any further treatment with medications at this time. However, if the coagulation studies that are pending show any abnormalities, blood thinning medications may be recommended in the future. Please return to the hospital for further evaluation if you develop any severe or concerning symptoms--specifically severe headaches, uncontrollable nausea/vomiting, dizziness, loss of consciousness, chest pain, shortness of breath, bloody coughing, or any other symptom that seems overtly abnormal to you or your family. Pending Studies at Discharge: Yes (Hypercoagulable labs) Stand-Alone Forms: My [facility] [employer], Smoking Cessation Medications and DC Order Prescriptions: Continued prenat.vits,onel,[id number] Tablet 1 tab PO DAILY RF: 0 (DME) breast pump Device See Rx Instructions .ROUTE .MEDSUPPLY Qty: 1 RF: 0 ferrous sulfate 325 mg (65 mg iron) Tablet,Delayed Release (Dr/Ec) 325 mg PO DAILY@08 Qty: 60 RF: 0 Discharge Orders: Discharge Order (Routine); Ordered 12/21/21 Ordered By: Jamarcus Griffin Admission Data Admit Date/Time: 12/19/21 18:57 Attending Provider: Sid Estrada Admit Provider: Ely Bauer Primary Care Provider: Cristal Ramirez Other Providers: Ely Bauer ; Josué Goss Other Interventions: *Nursing Shift Assessment Last Done: 12/21/21 08:00 Discharge Summary Assessment (RN) Last Done: 12/21/21 12:42 Supervising Physician Co-Signing Physician Notes I also saw the patient with the resident physician and confirmed yanes portions the history and physical examination. This morning, the patient without discomfort. She has no complaints and is eager to get home to her family and . Exam 140/93, 101, 18, 36.8, high percent room air She is alert and oriented. Speech is clear. HEENT is unremarkable Heart is regular Lungs are clear Abdomen is soft and nontender. Data WBC 14.24, hemoglobin 9.5, platelet count 368 Sodium 136, testing 3.5, BUN 4, creatinine 0.39 Hypercoagulability panel still pending. Imaging MR venography of the head showed no evidence of thrombosis. MRI of the abdomen today shows unchanged size of left sided renal hemorrhage, trace pleural effusions, large post gravid uterus, and mild bilateral hydroureteronephrosis. Ultrasound of the lower extremities is negative for DVT. Impression and plan left-sided adrenal vein thrombosis with associated hemorrhage Hemodynamic and metabolic stability Appreciate urology consultation Electrolytes, hemoglobin, and hemodynamic stable overnight Hypercoagulability work-up is pending; results are before to her PCP Discussed importance of follow-up with PCP for further management if needed. Also discussed signs and symptoms for which a return to the hospital would be indicated. Resident Activity Tracking Resident Involvement: Resident Care Provided Care Provided: Adult Hospital Medicine
[2021-12-23 01:01] LABS: B2 Glycoprotein IgG <2.0 U/mL (<20.0); B2 Glycoprotein IgM <2.0 U/mL (<20.0); Protein S Functional(Activity) 32 % (60-140)
[2021-12-23 06:48] LABS: Anti Cardiolipin Ab IgG <2.0 GPL-U/mL; Anti Cardiolipin Ab IgM <2.0 MPL-U/mL; Anti-Thrombin III Activity 120 % normal (80-135); PTT LA Screen 40 sec (<=40)
[2021-12-23 16:22] LABS: B2 Glycoprotein IgA <2.0 U/mL (<20.0); B2 Glycoprotein IgG <2.0 U/mL (<20.0); B2 Glycoprotein IgM <2.0 U/mL (<20.0); Phosphatidylserine IgG 10 U/mL (<10)
[2021-12-28 23:50] LABS: Factor 5 Mutation NEGATIVE
== END 2021-12-21 12:50 | disposition home or self-care (01) | DRG 776 ==
LOC: ED 10:38 → EDINP 18:57 → SUATTDRO 18:57 → 2S 12-20 01:11